=== PATIENT | male | born 1935 | race Caucasian/White ===

== ENCOUNTER → 2020-02-07 10:28 | Outpatient (BNVA) | payer MEDICARE, OTHER, SELFPAY | PROVIDERS: Family Provider Nurse Practitioner; PCP Nurse Practitioner; Visit Provider Nurse Practitioner | DX: I10 Essential (primary) hypertension (principal); E78.2 Mixed hyperlipidemia; M10.9 Gout, unspecified | CPT/HCPCS: 80053; 80061; 81000; 84550; 85025 ==

== ENCOUNTER → 2020-03-22 10:26 | Outpatient (BNVA) | payer MEDICARE, OTHER, SELFPAY | PROVIDERS: Family Provider Nurse Practitioner; PCP Nurse Practitioner; Visit Provider Nurse Practitioner | DX: L03.116 Cellulitis of left lower limb (principal); L02.416 Cutaneous abscess of left lower limb; I10 Essential (primary) hypertension | CPT/HCPCS: 85025 ==

== ENCOUNTER → 2020-08-28 10:11 | Outpatient (BNVA) | payer MEDICARE, OTHER, SELFPAY | PROVIDERS: Family Provider Nurse Practitioner; PCP Nurse Practitioner; Visit Provider Nurse Practitioner | DX: I10 Essential (primary) hypertension (principal); M10.9 Gout, unspecified; R39.11 Hesitancy of micturition; E78.2 Mixed hyperlipidemia; Z79.899 Other long term (current) drug therapy | CPT/HCPCS: 80053; 80061; 84550 ==

== ENCOUNTER → 2021-03-22 10:18 | Outpatient (BNVA) | payer MEDICARE, OTHER, SELFPAY | PROVIDERS: Family Provider Nurse Practitioner; PCP Nurse Practitioner; Visit Provider Nurse Practitioner | DX: K59.01 Slow transit constipation (principal); M10.9 Gout, unspecified; I10 Essential (primary) hypertension | CPT/HCPCS: 74018; 80053; 80061; 84443; 84550; 85025 ==

== ENCOUNTER → 2021-07-12 10:09 | Outpatient (BNVA) | payer MEDICARE, OTHER, SELFPAY | PROVIDERS: Family Provider Nurse Practitioner; PCP Nurse Practitioner; Visit Provider Nurse Practitioner | DX: I10 Essential (primary) hypertension (principal); M10.9 Gout, unspecified | CPT/HCPCS: 80053; 82607; 84443 ==

== ENCOUNTER → 2021-09-30 14:40 | Outpatient (BNVA) | payer MEDICARE, OTHER, SELFPAY | PROVIDERS: Family Provider Nurse Practitioner; PCP Nurse Practitioner; Visit Provider Nurse Practitioner | DX: I10 Essential (primary) hypertension (principal); K59.01 Slow transit constipation | CPT/HCPCS: 74018; 80053; 81000; 84443; 85025; 93005 ==

== ENCOUNTER → 2021-11-19 11:00 | Outpatient (BNVA) | payer MEDICARE, OTHER, SELFPAY | PROVIDERS: Family Provider Nurse Practitioner; PCP Nurse Practitioner; Visit Provider Internal Medicine Cardiovascular Disease | DX: N18.9 Chronic kidney disease, unspecified (principal); I49.8 Other specified cardiac arrhythmias; E78.5 Hyperlipidemia, unspecified; Z79.01 Long term (current) use of anticoagulants; R06.02 Shortness of breath | CPT/HCPCS: 80048; 80061; 84443; 85025 ==

== ENCOUNTER 2022-01-14 13:33 | Outpatient (CLI) | payer MEDICARE, OTHER, SELFPAY ==
--- NOTE | 2022-01-14 14:15 | USCV_ITS ---
Oswaldo Baron Age: 86 Gender: M : 1935 Exam Date: 01/14/2022 14:09 Ordering Phys: Lanre Little MD ([email or web address]) Technologist: DONNIE Exam Location: [facility] Indication: DYSPNEA Risk Factors: Previous Vascular Surgery: Right Brachial BP: / Left Brachial BP: / Right Left Velocity (cm/s) Spectral Plaque Velocity (cm/s) Spectral Plaque Syst/Diast Broadening Syst/Diast Broadening 53.60/ 7.80 Prox CCA 57.30 / 7.10 69.90/ 14.00 Mid CCA 48.40 / 9.10 64.50/ 10.90 Distal CCA 76.90 / 11.70 28.90/ 8.50 Prox ICA 25.00 / 9.90 57.10/ 13.90 Mid ICA 45.90 / 11.70 65.70/ 17.10 Distal ICA 35.20 / 7.70 59.00 ECA 59.80 0.94 ICA/CCA 0.60 Antegrade Vertebral Antegrade 42.70/ 11.80 cm/s 35.50/ 10.90 cm/s Tri Subclavian Tri 93.20 90.50 FINDINGS Mild to moderate heterogeneous plaques of the right bifurcation and proximal internal carotid artery Intimal thickening and scattered plaques in the common carotid artery on the right side Minimal plaques in the left internal carotid and common carotid artery. Antegrade flow in the vertebral arteries bilaterally Normal Doppler flow velocities in the subclavian arteries bilaterally CONCLUSIONS Mild to moderate heterogeneous plaques of the right bifurcation and proximal internal carotid artery, suggesting less than 50% stenosis Intimal thickening and scattered plaques in the common carotid and internal carotid artery on the left side. Dr Lanre Little MD [facility] (Electronically Signed) Final Date: 15 January 2022 18:29 S
--- NOTE | 2022-01-14 15:00 | USCV_ITS ---
Oswaldo Baron Age: 86 Gender: M : 1935 Exam Date: 01/14/2022 14:23 Ordering Phys: Lanre Little MD ([email or web address]) Technologist: DONNIE [place] [facility] [place]ication: DYSPNEA BP: 120 / 80 HR: 48 Rhythm: Sinus Technical Quality: Adequate MEASUREMENTS (Male / Female) Normal Values 2D ECHO LVOT Diameter 2.0 cm LV Ejection Fraction MOD 2C 67.8 % LV Ejection Fraction 2C AL 68.5 % LA Diameter 3.4 cm LA Width 3.4 cm LA Height 5.4 cm RA Width 4.8 cm RA Height 4.9 cm Aorta at Sinotubular Diameter 2.7 cm M-MODE Aortic Annulus Diameter 3.1 cm LA Ao Ratio MM 1.3 MV E Point Septal Separation 0.6 cm DOPPLER AV Peak Velocity 155.3 cm/s LVOT Peak Velocity 77.0 cm/s AV Area Cont Eq vti 1.5 cm squared AV Area Cont Eq pk 1.6 cm squared MV Peak Velocity 111.0 cm/s MV Area PHT 3.6 cm squared Mitral E to A Ratio 0.9 MV E' Velocity 35.5 cm/s Mitral E to MV E' Ratio 5.8 Mitral E to LV E' Lateral Ratio 5.6 Mitral E to LV E' Septal Ratio 6.2 TR Peak Velocity 238.8 cm/s TR Peak Gradient 22.8 mmHg TR Mean Velocity 206.7 cm/s TR Mean Gradient 19.1 mmHg TR Velocity Time Integral 96.5 cm TV Peak E Velocity 55.0 cm/s Right Atrial Pressure 3.0 mmHg Pulmonary Artery Systolic Pressu 25.8 mmHg PV Peak Velocity 95.0 cm/s RV Acceleration Time 0.0 s RV Ejection Time 0.4 s RV AcT/ET 0.1 FINDINGS Left Ventricle Normal left ventricular size and systolic function, EF 66 %. Mild left ventricular hypertrophy. No regional wall motion abnormalities. Right Ventricle The right ventricle is normal in size and function. Right Atrium Mildly increased right atrial size. Left Atrium Mildly increased left atrial size. Mitral Valve Trace mitral valve regurgitation. Aortic Valve Thickened aortic valve. Mild aortic valve regurgitation. Tricuspid Valve Trace to mild tricuspid valve regurgitation. Estimated pulmonary artery peak systolic pressure of 26 mm of Hg Pulmonic Valve Pulmonic valve not well visualized. Pericardium Normal pericardium without effusion. Aorta Normal ascending aorta dimension. CONCLUSIONS Normal left ventricular size and systolic function, EF 66 %. Mild left ventricular hypertrophy. No regional wall motion abnormalities. Mild biatrial enlargement. Trace to mild tricuspid valve regurgitation. Estimated pulmonary artery peak systolic pressure of 26 mm of Hg Thickened aortic valve. Mild aortic valve regurgitation. Trace mitral valve regurgitation. There is no pericardial effusion. There are no intracardiac masses. No previous study is available for comparison. Dr Lanre Little MD [facility] (Electronically Signed) Final Date: 14 January 2022 19:40 S
== END 2022-01-14 13:34 | disposition home or self-care (01) ==
PROVIDERS: Family Provider Nurse Practitioner; PCP Nurse Practitioner; Visit Provider Internal Medicine Cardiovascular Disease
DX: I77.9 Disorder of arteries and arterioles, unspecified (principal); I49.8 Other specified cardiac arrhythmias; R06.00 Dyspnea, unspecified; I65.23 Occlusion and stenosis of bilateral carotid arteries; I08.3 Combined rheumatic disorders of mitral, aortic and tricuspid valves
CPT/HCPCS: 93306; 93880

== ENCOUNTER → 2022-01-21 09:31 | Outpatient (BNVA) | payer MEDICARE, OTHER, SELFPAY | PROVIDERS: Family Provider Nurse Practitioner; PCP Nurse Practitioner; Visit Provider Nurse Practitioner | DX: I10 Essential (primary) hypertension (principal) | CPT/HCPCS: 80053; 85025 ==

== ENCOUNTER 2022-02-04 10:06 | Outpatient (CLI) | payer MEDICARE, OTHER, SELFPAY ==
--- NOTE | 2022-02-04 12:00 | CTR_ITS ---
PROCEDURE INFORMATION: Exam: CT Abdomen And Pelvis Without Contrast Exam date and time: 02/04/2022 12:00 PM Age: 86 years old Clinical indication: Other: Full incontinence of feces; Additional info: R15.9 - full incontinence of feces TECHNIQUE: Imaging protocol: Computed tomography of the abdomen and pelvis without contrast. Radiation optimization: All CT scans at this facility use at least one of these dose optimization techniques: automated exposure control; mA and/or kV adjustment per patient size (includes targeted exams where dose is matched to clinical indication); or iterative reconstruction. COMPARISON: CT Abdomen/Pelvis o [id number] 06/08/2018 10:40 AM RADIATION DOSE METRICS: Total DLP (mGy-cm): 1122.06 FINDINGS: Liver: Normal. No mass. Gallbladder and bile ducts: Normal. No calcified stones. No ductal dilation. Pancreas: Normal. No ductal dilation. Spleen: Normal. No splenomegaly. Adrenal glands: Normal. No mass. Kidneys and ureters: 2 cm cyst noted in the anterior cortex of the lower pole of the right kidney. No hydronephrosis. Stomach and bowel: Moderate colonic stool burden. No obstruction. No mucosal thickening. Appendix: No evidence of appendicitis. Intraperitoneal space: No free air. No significant fluid collection. Vasculature: No abdominal aortic aneurysm. Lymph nodes: Unremarkable. No enlarged lymph nodes. Urinary bladder: Unremarkable as visualized. Reproductive: Unremarkable as visualized. Bones/joints: No acute fracture. Advanced multilevel degenerative disc disease of the visualized thoracolumbar spine. Minimal grade 1 anterolisthesis of L4 on L5. Soft tissues: Unremarkable. CT/CT abdomen pelvis con [id number] IMPRESSION: No acute findings. Moderate colonic stool burden. COMMENTS: Consistent with the [employer]'s Incidental Findings Committee white paper (J Am Gertrude Radiol 2018): Any incidental renal lesion less than 1 cm or classified as too small to characterize, or any incidental cystic renal lesion characterized as simple-appearing, is likely benign. No follow-up imaging is recommended for these lesions per consensus recommendations based on imaging criteria.
[2022-02-04] MEDS: iohexol 300 mg/mL 50 mL Btl PO (12:08)
== END 2022-02-04 10:07 | disposition home or self-care (01) ==
LOC: RAD 10:09
PROVIDERS: PCP Nurse Practitioner; Visit Provider Nurse Practitioner
DX: R15.9 Full incontinence of feces (principal)
CPT/HCPCS: 74176

== ENCOUNTER → 2022-02-25 10:06 | Outpatient (BNVA) | payer MEDICARE, OTHER, SELFPAY | PROVIDERS: PCP Nurse Practitioner; Visit Provider Internal Medicine Cardiovascular Disease | DX: I49.8 Other specified cardiac arrhythmias (principal); I12.9 Hypertensive chronic kidney disease with stage 1 through stage 4 chronic kidney disease, or unspecified chronic kidney disease; N18.9 Chronic kidney disease, unspecified | CPT/HCPCS: 99214 ==

== ENCOUNTER → 2023-01-13 09:57 | Outpatient (BNVA) | payer MEDICARE, OTHER, SELFPAY | PROVIDERS: PCP Nurse Practitioner; Visit Provider Nurse Practitioner | DX: I10 Essential (primary) hypertension (principal); R41.3 Other amnesia | CPT/HCPCS: 80053; 80061; 81000; 82607; 84443; 85025 ==

== ENCOUNTER 2023-02-10 10:25 | Outpatient (CLI) | payer MEDICARE, OTHER, SELFPAY ==
--- NOTE | 2023-02-10 11:00 | MR_ITS ---
WS: [id number] MRI HEAD WITHOUT CONTRAST TECHNIQUE: Sagittal T1, T2 axial, T2 axial FLAIR, axial and coronal T1 images, axial susceptibility w eighted imaging, axial diffusion weighted images, and coronal T2 images were obtained. CLINICAL INFORMATION: R41.3 - Other amnesia COMPARISON: None. FINDINGS: No evidence of restricted diffusion to suggest acute ischemia. Ventricular system and basal cisterns are patent. Advanced small vessel changes. Moderate to advanced parenchymal volume loss worse in the bilateral parietal lobes and anterior temporal lobes. Normal posterior fossa. Normal vascular flow voids at the skull base. No extra-axial fluid collection s. No evidence of mass or mass effect. Paranasal sinuses are well aerated. Mild mucosal thickening in the mastoid tips. Tiny central protrusion C3-C4 on the blocking machine operator imaging. A few scattered foci of chronic hemosiderin more prominent in the RIGHT dorsal thalamus and mid RIGHT temporal lobe. Normal optic chiasm and pituitary infundibulum. Normal cavernous sinuses and Meckel's cave. Advanced atrophy temporal lobes and hippocampal formations. MR/MR head wo con* [id number] IMPRESSION: 1. No evidence of restricted diffusion to suggest acute ischemia. 2. Advanced small vessel changes. 3. Moderate to advanced parenchymal volume loss worse involving the bilateral parietal lobes and anterior temporal lobes can be seen with Alzheimer's dementi a. 4. A few scattered foci of hemosiderin more prominent in the RIGHT dorsal thal amus and mid RIGHT temporal lobe. 5. Mild mucosal thickening in the mastoid air cells. Paranasal sinuses are wel l aerated. 6. Tiny disc osteophyte protrusion C3-C4 in the upper cervical spine.
== END 2023-02-10 10:26 | disposition home or self-care (01) ==
LOC: RAD 10:29
PROVIDERS: PCP Nurse Practitioner; Visit Provider Nurse Practitioner
DX: R41.3 Other amnesia (principal)
CPT/HCPCS: 70551

== ENCOUNTER → 2023-02-24 09:43 | Outpatient (BNVA) | payer MEDICARE, OTHER, SELFPAY | PROVIDERS: PCP Nurse Practitioner; Visit Provider Internal Medicine Cardiovascular Disease | DX: I49.3 Ventricular premature depolarization (principal); G30.9 Alzheimer's disease, unspecified; F02.80 Dementia in other diseases classified elsewhere, unspecified severity, without behavioral disturbance, psychotic disturbance, mood disturbance, and anxiety; E78.2 Mixed hyperlipidemia; I10 Essential (primary) hypertension; I77.9 Disorder of arteries and arterioles, unspecified | CPT/HCPCS: 99214 ==

== ENCOUNTER → 2023-03-31 08:16 | Outpatient (BNVA) | payer MEDICARE, OTHER, SELFPAY | PROVIDERS: PCP Nurse Practitioner; Visit Provider Nurse Practitioner | DX: E53.8 Deficiency of other specified B group vitamins (principal); I10 Essential (primary) hypertension | CPT/HCPCS: 80053; 80061; 82607; 85025 ==

== ENCOUNTER → 2023-06-30 09:24 | Outpatient (BNVA) | payer MEDICARE, OTHER, SELFPAY | PROVIDERS: PCP Nurse Practitioner; Visit Provider Nurse Practitioner | DX: M10.9 Gout, unspecified (principal); F02.80 Dementia in other diseases classified elsewhere, unspecified severity, without behavioral disturbance, psychotic disturbance, mood disturbance, and anxiety; G30.9 Alzheimer's disease, unspecified; I10 Essential (primary) hypertension; I49.3 Ventricular premature depolarization | CPT/HCPCS: 80053; 82607; 84550 ==

== ENCOUNTER → 2023-09-16 12:40 | Outpatient (BNVA) | payer MEDICARE, OTHER, SELFPAY | PROVIDERS: PCP Nurse Practitioner; Visit Provider Nurse Practitioner Family | DX: I10 Essential (primary) hypertension (principal); I77.9 Disorder of arteries and arterioles, unspecified; I49.3 Ventricular premature depolarization | CPT/HCPCS: 99214 ==

== ENCOUNTER → 2023-12-15 10:44 | Outpatient (BNVA) | payer MEDICARE, OTHER, SELFPAY | PROVIDERS: PCP Nurse Practitioner; Visit Provider Nurse Practitioner | DX: I10 Essential (primary) hypertension (principal); E53.8 Deficiency of other specified B group vitamins; K59.01 Slow transit constipation; M10.9 Gout, unspecified; G30.9 Alzheimer's disease, unspecified; F02.80 Dementia in other diseases classified elsewhere, unspecified severity, without behavioral disturbance, psychotic disturbance, mood disturbance, and anxiety; M51.37 Other intervertebral disc degeneration, lumbosacral region; I49.3 Ventricular premature depolarization | CPT/HCPCS: 74018; 80053; 80061; 81000; 82607; 84443; 85025 ==

== ENCOUNTER → 2024-03-08 11:38 | Outpatient (BNVA) | payer MEDICARE, OTHER, SELFPAY | PROVIDERS: PCP Nurse Practitioner; Visit Provider Nurse Practitioner | DX: I10 Essential (primary) hypertension (principal); M10.9 Gout, unspecified; M51.37 Other intervertebral disc degeneration, lumbosacral region; G30.9 Alzheimer's disease, unspecified; F02.80 Dementia in other diseases classified elsewhere, unspecified severity, without behavioral disturbance, psychotic disturbance, mood disturbance, and anxiety; I49.3 Ventricular premature depolarization; G30.1 Alzheimer's disease with late onset; F02.B18 Dementia in other diseases classified elsewhere, moderate, with other behavioral disturbance; Z79.899 Other long term (current) drug therapy | CPT/HCPCS: 80053; 80061 ==

== ENCOUNTER → 2024-10-04 10:47 | Outpatient (BNVA) | payer MEDICARE, OTHER, SELFPAY | PROVIDERS: PCP Nurse Practitioner; Visit Provider Nurse Practitioner | DX: M10.9 Gout, unspecified (principal); G30.9 Alzheimer's disease, unspecified; G30.1 Alzheimer's disease with late onset; F02.B18 Dementia in other diseases classified elsewhere, moderate, with other behavioral disturbance; I10 Essential (primary) hypertension; I49.3 Ventricular premature depolarization; E78.2 Mixed hyperlipidemia; E55.9 Vitamin D deficiency, unspecified; Z23 Encounter for immunization; R23.8 Other skin changes; Z79.899 Other long term (current) drug therapy | CPT/HCPCS: 80053; 80061; 82306; 84443 ==

== ENCOUNTER 2024-12-06 10:54 | Observation (INO) | payer MEDICARE, OTHER, SELFPAY ==
[2024-12-06] VITALS (18 sets, daily range): BP systolic 122–167; BP diastolic 78–108; PULSE 65–117; RESP 12–25; TEMP 36.4–36.9; O2SAT 91–97; BMI 25.7
--- NOTE | 2024-12-06 11:03 | ECG_ITS ---
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 Measurements Intervals [place] Rate: 68 P: 0 FL: 0 QRS: -15 QRSD: 95 T: 0 QT: 426 QTc: 456 Interpretive Statements ATRIAL FIBRILLATION SEPTAL MYOCARDIAL INFARCTION , PROBABLY OLD [40+ ms Q WAVE IN V1/V2] No previous ECG available for comparison Electronically Signed On 12-06-2024 23:50:12 SPECIAL POLICE OFFICER by Lanre Little M.D. [email or web address]
--- NOTE | 2024-12-06 11:06 | XRR_ITS ---
PROCEDURE INFORMATION: Exam: XR Chest Exam date and time: 12/06/2024 11:09 AM Age: 89 years old Clinical indication: Other: Weakness TECHNIQUE: Imaging protocol: Radiologic exam of the chest. Views: 1 view. COMPARISON: CT chest abdpel w/*[id number] 02/23/2018 9:37 AM FINDINGS: Lungs: There is minimal linear atelectasis or scarring at the lung bases. No consolidated infiltrates are appreciated. Extrapleural line involving the right upper lung field likely represents a skin fold. There do appear to be lung markings peripheral to this line. No definite pleural effusion is noted. Pleural spaces: See Lungs finding. Heart/Mediastinum: The heart is enlarged. There is calcified plaque involving the aorta. Bones/joints: Unremarkable. XR/XR chest 1V portable [id number] IMPRESSION: 1. Cardiomegaly. Next 2. Minimal atelectasis or scarring at the lung bases.
--- NOTE | 2024-12-06 11:11 | CT_ITS ---
WS: [id number] CT CERVICAL TRAUMA TECHNIQUE: Noncontrast CT of the cervical spine with coronal and sagittal reformatted images. CLINICAL INFORMATION: fall COMPARISON: None. DLP: 200.[address] scans at [facility] use at least one of these dose optimization techniques: automated e xposure control; mA and/or kV adjustment per patient size (includes targeted exams where dose is matc hed to clinical indication); or iterative reconstruction. FINDINGS: Exaggeration of the normal cervical lordosis. Pannus formation at the C1-2 articulation. Moderate spo ndylitic changes. Disc osteophyte complexes C2-C3, C3-C4, C4-C5. Slight retrolisthesis C5 on C6. Disc narrowing worse at C5-C6 and C6-C7. Dens is normal in appearance. Normal occipital condyles. Congenital incomplete dorsal C1 ring. No tommie dence of acute fracture or dislocation. Normal prevertebral soft tissues. Surgical clips LEFT neck. Mastoids air cells are well aerated. Inspissated secretions in the sphenoid sinus. CT/CT cervical spin wo con* [id number] IMPRESSION: No evidence of acute fracture or dislocation.
--- NOTE | 2024-12-06 11:12 | ED_ITS ---
HPI - Weakness 2 General: Chief complaint: Weakness Stated complaint: Fall, AMS Time Seen by Provider: 12/06/24 10:55 Source: patient and EMS Mode of arrival: EMS Limitations: altered mental status History of Present Illness: 89-year-old male who is here today from home with frequent falls and increasing weakness per EMS patient had a fall this morning was unable to get up he has been having a hard time walking he does have dementia he is confused here he is able to tell me his name but not able answer many questions and is a poor historian Associated symptoms: Denies chest pain, chills, fever(s), headache(s), nausea or vomiting Review of Systems 2 Const: Reports: malaise; Denies: fever(s), chills, body aches or change in appetite Eyes: Denies: blurry vision or eye discomfort ENMT: Denies: throat pain or dental pain Card: Denies: chest pain Resp: Denies: dyspnea GI: Denies: abdominal pain, nausea, vomiting or diarrhea Musc: Denies: neck pain or back pain Skin/Breast: Denies: rash Neuro: Reports: weakness in extremities; Denies: headache(s) PFSH ED 2 PFSH: Medical History PVC (premature ventricular contraction) History of nonmelanoma skin cancer Mixed hyperlipidemia Statin intolerance Controlled gout Essential hypertension Slow transit constipation Surgical History History of endarterectomy Left History of cataract extraction Bilateral Family History Brother Hypertension Diabetes Hyperlipidemia CAD (coronary artery disease) unknown onset Mother Diabetes Stroke CAD (coronary artery disease) PA in her 70's Denies family history of Clotting disorder Dementia Chronic kidney disease (CKD) Suicide Anesthesia complication Bleeding disorder Lung disease Cancer Social History Smoking and tobacco/nicotine status: never used tobacco/nicotine Second hand smoke exposure: No Alcohol intake: never Substance/Drug Use: never Adopted: No Caregiver/support person: No Lives independently: Yes Household members: spouse Housing: House Marital status: Number of children: 2 service: Yes status: Retired branch: [employer] Current occupational status: retired Do you think of yourself as: Straight/Heterosexual Current gender identity: Male Physical Exam 2 Const: COMMON NORMALS: alert; negative for patient oriented x3 ORIENTATION/CONSCIOUSNESS: Yes oriented to person; not oriented to place and not oriented to time HENMT: COMMON NORMALS: normocephalic and atraumatic HEAD & SCALP: n ormocephalic and atraumatic Eye: COMMON NORMALS: Equal, round and reactive pupils present and EOMs intact bilaterally PUPIL: Yes Equal, round and reactive pupils present Neck/C-Spine: COMMON NORMALS: full ROM and supple Chest: COMMONS NORMALS: normal inspection of the chest Resp: COMMON NORMALS: normal respiratory effort, No retractions, No use of accessory muscles and clear to auscultation bilaterally AUSCULTATION: clear to auscultation bilaterally Cardio: COMMON NORMALS: regular rate, regular rhythm and No murmurs present (Cardio) RATE: regular rate RHYTHM: regular rhythm GI: COMMON NORMALS: Normal to inspection, nondistended, normoactive bowel sounds present, Soft to palpation, non-tender and no masses PALPATION: Yes Soft to palpation Extremity: COMMON NORMALS: normal to inspection and full ROM Neuro: COMMON NORMALS: moves all extremities and no focal motor deficits; negative for patient oriented x3 SENSORIUM/ORIENTATION: Yes alert, Yes oriented to person, No oriented to place and No oriented to time Psych: COMMON NORMALS: Normal thought process present and cooperative T HOUGHT PROCESS: Normal thought process present Skin: COMMON NORMALS: no rashes or lesions noted and no wounds GENERAL SKIN EXAM: no rashes or lesions noted Course 2 Vital Signs: Vital signs: Vital Signs Temperature 97.6 F 12/06/24 11:00 Pulse Rate 73 12/06/24 11:00 Blood Pressure 146/85 12/06/24 11:00 Pulse Oximetry 96 12/06/24 11:00 Oxygen Delivery Me thod Room Air 12/06/24 11:00 MDM - Weakness Medical Decision Making Patient presents with generalized weakness he has had multiple falls as well as had a hard time ambulating here I do not feel he is stable for discharge back home at this time head CT was normal. Medical Records I reviewed the patient's medical records. Lab Data I reviewed the patient's lab results. 12/06/24 13:00 12/06/24 11:46 Radiology Impressions Chest X-Ray 12/06/24 11:06 IMPRESSION: 1. Cardiomegaly. Next 2. Minimal atelectasis or scarring at the lung bases. Cervical Spine CT 12/06/24 11:11 IMPRESSION: No evidence of acute fracture or dislocation. Hip/Pelvis X-Ray 12/06/24 11:43 IMPRESSION: No acute traumatic injury. Head CT 12/06/24 11:45 IMPRESSION: 1. No evidence of intracranial hemorrhage or mass effect. 2. Advanced small vessel changes. Moderate parenchymal volume loss similar to previous. 3. No acute intracranial findings. Laboratory Results WBC 7.73 10^3/uL (3.29-11.43) 12/06/24 13:00 Corrected WBC Cancelled 12/06/24 11:46 RBC 5.19 10^6/uL (3.85-5.65) 12/06/24 13:00 Hgb 15.40 g/dL (11.27-16.99) 12/06/24 13:00 Hct 48.7 % (37-53) 12/06/24 13:00 MCV 93.8 fl (82-101) 12/06/24 13:00 MCH 29.7 pg (27-33) 12/06/24 13:00 MCHC 31.6 g/dL (30-55) 12/06/24 13:00 RDW 14.0 % (12.1-15.1) 12/06/24 13:00 Plt Count 95 10^3/cmm (157-399) L 12/06/24 13:00 MPV 12.3 fL (7.4-10.4) H 12/06/24 13:00 Gran % Cancelled 12/06/24 11:46 Neut % (Auto) 74.2 % 12/06/24 13:00 Lymph % (Auto) 16.7 % 12/06/24 13:00 [place] % (Auto) 7.1 % 12/06/24 13:00 Eos % (Auto) 1.3 % 12/06/24 13:00 Baso % (Auto) 0.4 % 12/06/24 13:00 Neut # (Auto) 5.74 10^3/uL (1.8-7.7) 12/06/24 13:00 Lymph # (Auto) 1.3 10^3/uL (0.8-4.8) 12/06/24 13:00 [place] # (Auto) 0.6 10^3/uL (0.2-0.9) 12/06/24 13:00 Eos # (Auto) 0.1 10^3/uL (0.0-0.8) 12/06/24 13:00 Baso # (Auto) 0.0 10^3/uL (0.0-0.1) 12/06/24 13:00 Absolute Gran (auto) Cancelled 12/06/24 11:46 Nucleated RBC % (auto) 0 % 12/06/24 13:00 Nucleated RBCs # 0.0 /100WBC 12/06/24 13:00 Sodium 136 mmol/L (136-145) 12/06/24 11:46 Potassium 4.1 mmol/L (3.5-5.1) 12/06/24 11:46 Chloride 102 mmol/L (98-107) 12/06/24 11:46 Carbon Dioxide 26 mmol/L (22-29) 12/06/24 11:46 Anion Gap 12.1 (5-19) 12/06/24 11:46 BUN 18 mg/dL (8-23) 12/06/24 11:46 Creatinine 1.3 mg/dL (0.7-1.2) H 12/06/24 11:46 GFR Calculation Not Reportable 12/06/24 11:46 Glucose 102 mg/dL (65-115) 12/06/24 11:46 POC Glucose 87 mg/dL (70-110) 12/06/24 11:40 Calculated Osmolality 284 mOsm/kg (285-295) L 12/06/24 11:46 Calcium 10.0 mg/dL (8.5-10.5) 12/06/24 11:46 Magnesium 2.1 mg/dL (1.7-2.3) 12/06/24 11:46 Total Bilirubin 0.9 mg/dL (0.15-1.2) 12/06/24 11:46 AST 20 U/L (0-40) 12/06/24 11:46 ALT 15 U/L (0-41) 12/06/24 11:46 Alkaline Phosphatase 105 U/L (40-130) 12/06/24 11:46 Total Protein 6.6 g/dL (6.6-8.7) 12/06/24 11:46 Albumin 3.9 g/dL (3.5-5.2) 12/06/24 11:46 Globulin 2.7 g/dL (1.3-4.6) 12/06/24 11:46 TSH 3.99 uIU/mL (0.27-4.20) 12/06/24 11:46 Urine Color Yellow (Yellow) 12/06/24 12:02 Urine Appearance Clear (CLEAR) 12/06/24 12:02 Urine pH 5.5 (5-7) 12/06/24 12:02 Ur Specific [place] 1.017 (1.005-1.030) 12/06/24 12:02 Urine Protein Negative (Negative) 12/06/24 12:02 Urine Glucose (UA) Negative (Normal) 12/06/24 12:02 Urine Ketones Negative (Negative) 12/06/24 12:02 Urine Blood Negative (Negative) 12/06/24 12:02 Urine Nitrate Negative (Negative) 12/06/24 12:02 Urine Bilirubin Negative (Negative) 12/06/24 12:02 Urine Urobilinogen 1.0 mg/dL (Negative) 12/06/24 12:02 Ur Leukocyte Esterase Negative (Negative) 12/06/24 12:02 Urine RBC 0-2 /hpf (0-2) 12/06/24 12:02 Urine WBC 0-5 /hpf (0-5) 12/06/24 12:02 Ur Squamous Epith Cells 0-5 /hpf (0-5) 12/06/24 12:02 Amorphous Sediment Not Reportable 12/06/24 12:02 Urine Bacteria None seen /hpf (NONE) 12/06/24 12:02 Hyaline Casts 2.05 /lpf 12/06/24 12:02 All radiology interpretation(s) finalized by discharge EKG Data EKG 1: I personally reviewed and interpreted this EKG as follows: EKG interpretation date: 12/06/24 EKG interpretation time: 11:03 Interpretation: afib hr [address] elevation qrs 95 qtc 444 Discharge Plan Discharge Patient Disposition: Admitted As Inpatient Clinical Impression: Weakness Condition: Stable Prescriptions: No Action amlodipine 10 mg tablet 10 mg PO DAILY Qty: 90 1RF magnesium L-lactate [Magtab] 84 mg tablet extended release 84 mg PO DAILY Qty: 90 1RF diclofenac sodium [Voltaren Arthritis Pain] 1 % gel 2 g topical QID PRN (Reason: joint pain) Qty: 100 2RF Rx Instructions: apply to single elbow, wrist or hand; for hand includes palm/fingers/back of hand allopurinol 300 mg tablet 300 mg PO DAILY Qty: 90 1RF aripiprazole [Abilify] 5 mg tablet 5 mg PO DAILY Qty: 90 1RF duloxetine [Cymbalta] 20 mg capsule,delayed release(DR/EC) 20 mg PO .in AM Qty: 90 1RF Rx Instructions: for feet hydralazine 25 mg tablet 25 mg PO TID Qty: 270 1RF losartan 100 mg tablet 100 mg PO DAILY Qty: 90 1RF metoprolol tartrate 25 mg tablet 25 mg PO BID Qty: 180 1RF mupirocin 2 % ointment 1 applic topical BID Qty: 15 0RF trazodone 50 mg tablet 50 mg PO .at bedtime for sleep Qty: 30 2RF Referrals: Cindy Kaye, PICK UP OPERATOR-C [Primary Care Provider] - Coding Level of Care Code ED Advertising Designer for g Fwd Related Data Previous Rx's Medication Instructions Recorded amlodipine 10 mg tablet 10 mg PO DAILY #90 tabs 05/24/24 diclofenac sodium 1 % topical gel 2 g topical QID PRN joint pain 05/24/24 (Voltaren Arthritis Pain) #100 grams magnesium L-lactate 84 mg 84 mg PO DAILY #90 tabs 05/24/24 tablet,extended release (Magtab) allopurinol 300 mg tablet 300 mg PO DAILY #90 tabs 10/04/24 aripiprazole 5 mg tablet (Abilify) 5 mg PO DAILY #90 tabs 10/04/24 duloxetine 20 mg capsule,delayed 20 mg PO .in AM #90 caps 10/04/24 release (Cymbalta) hydralazine 25 mg tablet 25 mg PO TID #270 tabs 10/04/24 losartan 100 mg tablet 100 mg PO DAILY #90 tabs 10/04/24 metoprolol tartrate 25 mg tablet 25 mg PO BID #180 tabs 10/04/24 mupirocin 2 % topical ointment 1 applic topical BID #15 grams 10/04/24 trazodone 50 mg tablet 50 mg PO .at bedtime for sleep #30 11/08/24 tabs Allergies Allergy/AdvReac Type Severity Reaction Status Date / Time atorvastatin [From Lipitor] Allergy Unknown Verified 12/06/24 11:07
[2024-12-06 11:42] LABS: Glucose Point of Care 87 mg/dL (70-110)
--- NOTE | 2024-12-06 11:43 | XRR_ITS ---
PROCEDURE INFORMATION: Exam: XR Left Hip Exam date and time: 12/06/2024 11:44 AM Age: 89 years old Clinical indication: Injury or trauma; Fall; Blunt trauma (contusions or hematomas); Left; Hip TECHNIQUE: Imaging protocol: Radiologic exam of the left hip. Views: 2 or 3 views hip with pelvis when performed. COMPARISON: CT abdomen pelvis wo con [id number] 02/04/2022 10:46 AM FINDINGS: Bones/joints: Mild acromioclavicular and glenohumeral spurring. No fracture or dislocation. No acute osseous, joint, or soft tissue abnormality. Soft tissues: See Bones/joints finding. XR/XR hip LT 2-3V wo/w pel* [id number] IMPRESSION: No acute traumatic injury.
--- NOTE | 2024-12-06 11:45 | CT_ITS ---
WS: [id number] CT HEAD TECHNIQUE: Noncontrast CT of the head obtained from the skullbase to the vertex. CLINICAL INFORMATION: fall COMPARISON: MRI 02/10/2023 DLP: 1811.[address] scans at [facility] use at least one of these dose optimization techniques: automated e xposure control; mA and/or kV adjustment per patient size (includes targeted exams where dose is matc hed to clinical indication); or iterative reconstruction. FINDINGS: No evidence of intracranial hemorrhage or mass effect. Ventricular system and basal cisterns are ferguson nt. Advanced small vessel changes with moderate parenchymal volume loss. Vascular calcification. No e xtra-axial fluid collections. No evidence of mass or mass effect. 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 Paranasal sinuses and mastoid air cells are well aerated. Inspissated secretions in the sphenoid sinu s..Normal visualized soft tissues. CT/CT head wo con* [id number] IMPRESSION: 1. No evidence of intracranial hemorrhage or mass effect. 2. Advanced small vessel changes. Moderate parenchymal volume loss similar to previous. 3. No acute intracranial findings.
[2024-12-06 12:17] LABS: Bilirubin Urine Negative (Negative); Blood Urine Negative (Negative); Glucose Urine UA Negative (Normal); Ketones Urine Negative (Negative); Leukocyte Esterase Urine Negative (Negative); Nitrate Urine Negative (Negative); Protein Urine Negative (Negative); Specific Gravity, Urine 1.017 (1.005-1.030); Urine Appearance Clear (CLEAR); Urine Color Yellow (Yellow); pH Urine 5.5 (5-7)
[2024-12-06 12:22] LABS: Add Urine Microscopic? YES; Bacteria Urine None Seen /hpf; Hyaline Casts Urine 2.05 /lpf; RBC Urine 0-2 /hpf (0-2); Squamous Epithelial Cell Urine 0-5 /hpf (0-5); WBC Urine 0-5 /hpf (0-5)
[2024-12-06 12:24] LABS: Alanine Aminotransferase 15 U/L (0-41); Albumin Level 3.9 g/dL (3.5-5.2); Alkaline Phosphatase 105 U/L (40-130); Anion Gap 12.1 (5-19); Aspartate Amino Transferase 20 U/L (0-40); Blood Urea Nitrogen 18 mg/dL (8-23); Carbon Dioxide 26 mmol/L (22-29); Chloride 102 mmol/L (98-107); Creatinine Clr Calc Pharmacy 45.8842; Globulin 2.7 g/dL (1.3-4.6); Glucose 102 mg/dL (65-115); Magnesium 2.1 mg/dL (1.7-2.3); Osmolality Calculated 284 mOsm/kg (285-295); Potassium 4.1 mmol/L (3.5-5.1); Sodium 136 mmol/L (136-145); Thyroid Stimulating Hormone 3.99 uIU/mL (0.27-4.20); Total Bilirubin 0.9 mg/dL (0.15-1.2); Total Protein 6.6 g/dL (6.6-8.7)
[2024-12-06 12:38] LABS: Add Urine Culture? No; UA Slide Review UA Slide Review Perf
[2024-12-06 13:07] LABS: Basophils % 0.4 %; Eosinophils # 0.1 10^3/uL (0.0-0.8); Eosinophils % 1.3 %; Hematocrit 48.7 % (37-53); Lymphocytes # 1.3 10^3/uL (0.8-4.8); Lymphocytes % 16.7 %; Mean Corpuscular HGB Conc 31.6 g/dL (30-55); Mean Corpuscular Hemoglobin 29.7 pg (27-33); Mean Corpuscular Volume 93.8 fl (82-101); Mean Platelet Volume 12.3 fL (7.4-10.4); Monocytes # 0.6 10^3/uL (0.2-0.9); Monocytes % 7.1 %; Neutrophils # 5.74 10^3/uL (1.8-7.7); Neutrophils % 74.2 %; Nucleated Red Blood Cells % 0 %; Platelet Count 95 10^3/cmm (157-399); Red Blood Count 5.19 10^6/uL (3.85-5.65); White Blood Count 7.73 10^3/uL (3.29-11.43)
--- NOTE | 2024-12-06 16:02 | P.HP_ITS ---
Providers/Chief Complaint 2 Primary Care Provider: Cindy Kaye, CELIO Chief Complaint: Fall, AMS History of Present Illness Oswaldo Baron is a 89 year old male With past medical history of hypertension, gout, hyperlipidemia, PVCs who presented to the hospital today brought in by family for complaint of fall that happened this morning. He fell yesterday as well where the neighbor had to lift him up from the sofa. Patient's family states that he has been having frequent falls lately where his legs just give out and he feels weak. He does not complain of any lightheadedness prior to falling. They also report he had an episode of blood in urine this morning. Also has history of BPH however is not on any medications for it as far as they are aware. He has a really good appetite and eats. He does have a diagnosis of Alzheimer's dementia for the last 2 years. He is quite functional and able to recognize his family members and perform his ADLs. He does have some bad days and there is some owners but for the most part he is doing okay. He follows with Cindy Kaye as an outpatient. Patient's family also reports that he has pedal edema for which his primary care doctor was concerned for possible heart failure however they state that there was no workup ordered?. Patient is unable to provide any history at this time since he is confused. He is also hard of hearing. Patient is not taking any of his home medications today. Seen in ER room 7. On telemetry he does seem to have tachycardia with heart rate up to 150 160 at rest and thereafter having lower heart rates with values in 60s with some prolonged beats. No real sinus pause noted on telemetry while I was in the room. Patient has no known history of A-fib. Chest x-ray showed cardiomegaly CT cervical spine shows no acute fracture or dislocation Hip pelvis x-ray shows no acute traumatic injury ? CT head shows no evidence of intracranial hemorrhage or mass effect EKG did show A-fib heart rate [address] elevation. Urinalysis is normal Medications/Allergies Home Medications Medication Instructions Recorded Confirmed Last Taken Type amlodipine 10 mg tablet 10 mg PO DAILY #90 tabs 05/24/24 12/06/24 12/05/24 Rx diclofenac sodium 1 % topical gel 2 g topical QID PRN joint pain 05/24/24 12/06/24 12/05/24 Rx (Voltaren Arthritis Pain) #100 grams magnesium L-lactate 84 mg 84 mg PO DAILY #90 tabs 05/24/24 12/06/24 12/05/24 Rx tablet,extended release (Magtab) allopurinol 300 mg tablet 300 mg PO DAILY #90 tabs 10/04/24 12/06/24 12/05/24 Rx aripiprazole 5 mg tablet (Abilify) 5 mg PO DAILY #90 tabs 10/04/24 12/06/24 12/05/24 Rx duloxetine 20 mg capsule,delayed 20 mg PO .in AM #90 caps 10/04/24 12/06/24 12/05/24 Rx release (Cymbalta) hydralazine 25 mg tablet 25 mg PO TID #270 tabs 10/04/24 12/06/24 12/05/24 Rx losartan 100 mg tablet 100 mg PO DAILY #90 tabs 10/04/24 12/06/24 12/05/24 Rx metoprolol tartrate 25 mg tablet 25 mg PO BID #180 tabs 10/04/24 12/06/24 12/05/24 Rx mupirocin 2 % topical ointment 1 applic topical BID #15 grams 10/04/24 12/06/24 12/05/24 Rx trazodone 50 mg tablet 50 mg PO .at bedtime for sleep #30 11/08/24 12/06/24 12/05/24 Rx tabs Allergies Allergy/AdvReac Type Severity Reaction Status Date / Time atorvastatin [From Lipitor] Allergy Unknown Verified 12/06/24 11:07 PFSH Acute 2 PFSH: Medical History PVC (premature ventricular contraction) History of nonmelanoma skin cancer Mixed hyperlipidemia Statin intolerance Controlled gout Essential hypertension Slow transit constipation Surgical History History of endarterectomy Left History of cataract extraction Bilateral Family History Brother Hypertension Diabetes Hyperlipidemia CAD (coronary artery disease) unknown onset Mother Diabetes Stroke CAD (coronary artery disease) [place] in her 70's Denies family history of Clotting disorder Dementia Chronic kidney disease (CKD) Suicide Anesthesia complication Bleeding disorder Lung disease Cancer Social History Smoking and tobacco/nicotine status: never used tobacco/nicotine Second hand smoke exposure: No Alcohol intake: never Substance/Drug Use: never Adopted: No Caregiver/support person: No Lives independently: Yes Household members: spouse Housing: House Marital status: Number of children: 2 service: Yes status: Retired branch: [employer] Current occupational status: retired Do you think of yourself as: Straight/Heterosexual Current gender identity: Male Vitals/I&O/Wt Last Vital Signs Temp 97.6 F 12/06/24 11:00 Pulse 73 12/06/24 11:00 BP 146/85 12/06/24 11:00 Pulse Ox 96 12/06/24 11:00 O2 Del Method Room Air 12/06/24 11:00 Weight last 48 hrs Weight 86.183 kg Physical Exam 2 Narrative: General: Alert and oriented to self, seen sitting up in bed with family present at bedside. Very hard of hearing. HEENT: Normocephalic, atraumatic, EOMI, breathing comfortably on room air. Cardio: Irregularly irregular, normal S1-S2, no gross murmurs. Respiratory: To auscultation bilaterally no wheezes no rhonchi GI: Abdomen soft, nontender, bowel sounds + Extremities: Bilateral 2+ pedal edema present Skin: Good skin turgor, does not appear to be dehydrated at this time. Moist mucous membranes Data 12/06/24 13:00 12/06/24 11:46 A&P Assessment and plan (1) Essential hypertension: (2) PVC (premature ventricular contraction): (3) Mixed hyperlipidemia: (4) Controlled gout: (5) Alzheimer's dementia: Qualifiers: Alzheimer's disease onset: late onset Dementia severity: moderate D ementia behavioral or psychological symptom: with other behavioral disturbance Qualified Code(s): G30.1 - Alzheimer's disease with late onset; F02.B18 - Dementia in other diseases classified elsewhere, moderate, with other behavioral disturbance (6) Weakness: (7) Frequent falls: Plan #Altered mental status with underlying dementia, possible acute metabolic encephalopathy versus worsening dementia #Bilateral pedal edema, congestive heart failure? #Frequent falls #CKD #Atrial fibrillation, possibly new onset? ? Continue to monitor on telemetry. CT head is negative, chest x-ray is negative, CT C-spine, hip x-rays negative, urinalysis negative white count is normal. Does have CKD with creatinine is at patient's baseline. He may possibly having worsening dementia. I do not believe there is an underlying infection at this time. He denies any fever cough shortness of breath nausea vomiting diarrhea abdominal pain constipation as per family. ? Possibly new onset congestive heart failure?. Will place on Lasix 20 IV daily and see response ? Family did report blood in urine. Urinalysis does not show any RBCs at this time. Possible rhabdo? ? Will check CPK ? Vitals are stable ? Continue home hydralazine 25 3 times daily ? Continue losartan 100 daily ? Continue metoprolol 25 twice daily ? Continue Abilify 5 daily ? Hold off on amlodipine at this time. Will monitor patient with above medications at this time ? Check PT OT ? Check bladder scan. If patient retaining will place Humphries catheter ? Will observe patient in the hospital overnight. Will check an echocardiogram. If warranted may consult cardiology. Patient has worn a Holter monitor in the past. Does have a history of PVCs. Had a goals of care discussion with the family and they would like to elect for DNR/DNI status. Attestations 2 Medical Necessity Statement*: Observation admission. Expect discharge in less than 48 hours. 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
--- NOTE | 2024-12-06 16:17 | USCV_ITS ---
Oswaldo Baron Age: 89 Gender: M : 1935 Exam Date: 12/06/2024 16:55 Ordering Phys: Mira Lorenz MD Technologist: Tee Valencia Exam Location[place] [facility] [place]ication: Afib, EF? History of HTN, gout, HL, PVCs, s/p GLF BP: 153 / 99 HR: 76 Rhythm: Atrial fibrillation Technical Quality: Adequate MEASUREMENTS (Male / Female) Normal Values 2D ECHO LV Diastolic Diameter PLAX 3.5 cm 4.2 - 5.9 / 3.9 - 5.3 cm IVS Diastolic Thickness 2.0 cm 0.6 - 1.0 / 0.6 - 0.9 cm IVS Systolic Thickness 2.7 cm LVPW Diastolic Thickness 1.5 cm 0.6 - 1.0 / 0.6 - 0.9 cm LVPW Systolic Thickness 1.9 cm LVOT Diameter 2.0 cm LV Ejection Fraction 2D Teich 59.5 % LV Ejection Fraction MOD 4C 47.8 % LV Ejection Fraction MOD 2C 78.1 % LV Ejection Fraction 2C AL 40.2 % LA Diameter 4.4 cm LA Sys Volume AL 80.9 cm cubed LA Sys Volume Index AL 38.5 cm cubed/m squared Aorta at Sinotubular Diameter 2.5 cm IVC Diameter 1.5 cm M-MODE LA Ao Ratio MM 1.4 AV Cusp Separation MM 2.5 cm DOPPLER AV Peak Velocity 134.0 cm/s LVOT Peak Velocity 73.0 cm/s AV Area Cont Eq vti 1.9 cm squared AV Area Cont Eq pk 1.8 cm squared MV Peak Velocity 122.0 cm/s MV Area PHT 4.8 cm squared Mitral E to A Ratio 0.0 TV Peak Velocity 269.7 cm/s TR Peak Velocity 290.0 cm/s TR Peak Gradient 33.6 mmHg TV Peak E Velocity 59.0 cm/s PV Peak Velocity 83.0 cm/s FINDINGS Left Ventricle Normal left ventricular size, systolic function and wall thickness, with no regional wall motion abnormalities. Left ventricular ejection fraction is estimated at 60 %. Grade I/IV diastolic dysfunction (abnormal relaxation filling pattern), normal to mildly elevated filling pressures. Right Ventricle The right ventricle is normal in size and function. Right Atrium The right atrium is normal in size. Left Atrium Moderately increased left atrial size. Mitral Valve Moderately thickened mitral valve. Mild mitral annular calcification. No mitral valve stenosis. Mild-moderate mitral valve regurgitation. Aortic Valve Thickened aortic valve. Mild aortic valve stenosis, mean gradient 3.6 mmHg, KARIE 1.9 cm squared. Trace aortic valve regurgitation. Tricuspid Valve Mild tricuspid valve regurgitation. Pulmonic Valve Structurally normal pulmonic valve without significant stenosis. There is no pulmonic regurgitation. Pericardium Normal pericardium without effusion. Aorta Normal ascending aorta dimension. IVC The inferior vena cava appears normal. CONCLUSIONS Normal left ventricular size, systolic function and wall thickness, with no regional wall motion abnormalities. Left ventricular ejection fraction is estimated at 60 %. Grade I/IV diastolic dysfunction (abnormal relaxation filling pattern), normal to mildly elevated filling pressures. Moderately increased left atrial size. Thickened aortic valve. Mild aortic valve stenosis, mean gradient 3.6 mmHg, KARIE 1.9 cm squared. Trace aortic valve regurgitation. Moderately thickened mitral valve. Mild mitral annular calcification. No mitral valve stenosis. Mild-moderate mitral valve regurgitation. There is no pericardial effusion. Right atrial pressure is around 5 mm of mercury. Susan Rojas MD (Electronically Signed) Final Date: 07 December 2024 11:43 S
--- NOTE | 2024-12-06 17:16 | ECG_ITS ---
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 Measurements Intervals [place] Rate: 61 P: 0 SC: 0 QRS: -14 QRSD: 94 T: -14 QT: 415 QTc: 421 Interpretive Statements ATRIAL FIBRILLATION SEPTAL MYOCARDIAL INFARCTION , PROBABLY OLD [40+ ms Q WAVE IN V1/V2] Compared to ECG 12/06/2024 11:03:47 No significant changes Electronically Signed On 12-06-2024 23:50:14 COMMERCIAL APPRAISER by Lanre Little M.D. [email or web address]
[2024-12-06 17:20] LABS: NT Pro B Type Natriuretic Pept 2305 pg/mL (0-450); Procalcitonin 0.05 ng/mL (0-0.5); Thyroid Stimulating Hormone 4.08 uIU/mL (0.27-4.20)
[2024-12-06 17:28] LABS: Troponin(5th) Baseline 30 ng/L (0-15)
[2024-12-06] MEDS: heparin 5,000 unit/mL INJ 1 mL 5000 UNIT SUBCUT (18:01)
--- NOTE | 2024-12-06 18:50 | ECG_ITS ---
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
[2024-12-06] MEDS: FUROsemide 10 mg/mL SDV 4mL 40 MG IVP (19:01)
[2024-12-06 19:32] LABS: Troponin 5 2HR 30.46 ng/L (0-15); Troponin 5 2HR Delta 0.46 ABS# (0-10)
[2024-12-06] MEDS: trazodone 50 mg Tablet PO (20:57)
[2024-12-06] MEDS: hyDRALAzine 25 mg Tablet PO (20:57)
[2024-12-06] MEDS: metoprolol tartrate 25 mg Tablet PO (20:57)
--- NOTE | 2024-12-06 23:15 | PC.RESP ---
pts family asked for pt not to be awakened for ekg, rn aware
[2024-12-06 23:16] LABS: Troponin 5 6HR 32.32 ng/L (0-15); Troponin 5 6HR Delta 2.32 ng/L (0-12)
[2024-12-07] VITALS (17 sets, daily range): BP systolic 102–122; BP diastolic 61–85; PULSE 64–91; RESP 14–77; TEMP 36.6–37; O2SAT 91–95
[2024-12-07 05:15] LABS: Basophils % 0.5 %; Eosinophils # 0.2 10^3/uL (0.0-0.8); Eosinophils % 1.8 %; Hematocrit 44.7 % (37-53); Lymphocytes # 1.2 10^3/uL (0.8-4.8); Mean Corpuscular HGB Conc 32.2 g/dL (30-55); Mean Corpuscular Hemoglobin 29.3 pg (27-33); Mean Corpuscular Volume 90.9 fl (82-101); Monocytes # 0.8 10^3/uL (0.2-0.9); Neutrophils % 74.5 %; Nucleated Red Blood Cells % 0 %; Platelet Count 140 10^3/cmm (157-399); Red Blood Count 4.92 10^6/uL (3.85-5.65); Red Cell Distribution Width 13.9 % (12.1-15.1); White Blood Count 8.86 10^3/uL (3.29-11.43)
[2024-12-07 05:43] LABS: Blood Urea Nitrogen 16 mg/dL (8-23); Calcium 9.8 mg/dL (8.5-10.5); Carbon Dioxide 29 mmol/L (22-29); Chloride 102 mmol/L (98-107); Creatinine Clr Calc Pharmacy 46.6751; Glucose 103 mg/dL (65-115); Osmolality Calculated 293 mOsm/kg (285-295); Sodium 141 mmol/L (136-145)
[2024-12-07] MEDS: heparin 5,000 unit/mL INJ 1 mL 5000 UNIT SUBCUT ×2 (05:58→18:12)
--- NOTE | 2024-12-07 09:18 | PC.CHAP ---
Pastoral Care Encounter/Spiritual Assessment Type of Contact [] Declined wet plant operator visit [] Patient/Family/Request visit [] Outpatient visit [] Follow-up visit [] Physician referral [] Code/Alert [x] Routine visit [] Staff referral [] Actively dying [] Patient sleeping [x] Family support [] [] Out of room [] Palliative care [] [] Receiving care in room [] Pre-surgical visit [] Trauma [] Long length of stay [] ICU visit [x Relational/Emotional Strength [] Patient feels connected with others/family/visitors/staff [] Distress [] Loneliness/isolation [] Abandonment Spirituality of Patient [] Person of Nakia [] Attends Latter-Day of their Nakia [] Believes in Prayer [] Reads Bible or Bahai materials [] There are Spiritual issues to be addressed Hide Cleaner Interventions [x] Prayer [x] Active listening [x] Non-anxious presence [x] Spiritual/emotional support [] Crisis/trauma care [] Spiritual counseling [] Bereavement support [] Provided bereavement packet [] Provided Bible/devotional materials [] Provided toy/stuffed animal, coloring book to patient or family member [] Provided Communion [] Anointing/[place] [] Salvation [x] Completed spiritual assessment [x] Other: Patient sleeping. Visit with family. Impact on Illness or Injury [] Angry [] Fearful [] Anxious [] Often cries [] Exhaustion [] Unable to work [] Unable to attend adventism [] Unable to walk/stand [] Unable to read [] Unable to drive [] Unable to eat/drink [] Unable to sleep [] Unable to be with family [] Patient intubated [] Other: Summary Time spent with patient % min
[2024-12-07] MEDS: magnesium lactate 84 mg Tablet PO (09:29)
[2024-12-07] MEDS: ARIPiprazole 10 mg Tablet 5 MG PO (09:29)
[2024-12-07] MEDS: metoprolol tartrate 25 mg Tablet PO (09:30)
[2024-12-07] MEDS: hyDRALAzine 25 mg Tablet PO (09:30)
[2024-12-07] MEDS: duloxetine 20 mg Capsule PO (09:30)
[2024-12-07] MEDS: losartan 50 mg Tablet 100 MG PO (09:30)
--- NOTE | 2024-12-07 11:34 | P.PN_ITS ---
Subjective 2 Subjective: Seen this morning at the bedside. Patient is quite sleepy however does wake up to state his name and follows commands. Family states he has been sleepy where he would not wake up to eat breakfast. On telemetry overnight there was evidence of atrial flutter A-fib and conversion to sinus. There is also a lot of artifact on telemetry. Echo this morning shows mild to moderate mitral regurgitation with normal EF. Patient was unable to work with physical therapy this morning secondary to somnolence. He did get his regular nighttime dose of trazodone. Family states that they were not seen in the ER by an ER physician prior to being admitted by hospitalist and were quite upset about it. At time of admission they had voiced the same concern and requested to transfer. I did offer them transfer to another facility in the ER when I saw patient however they were okay staying here at that time for further workup. This morning family had concerns regarding inadequate workup at [facility] and requested the physical therapist to transfer patient to [place]. I went and saw family and patient at bedside and discussed with them then we will be doing an MRI due to underlying atrial fibrillation and suspicion of stroke and discussed results of echo and telemetry. They are on board with the plan to do the MRI. Vitals/I&O/Wt Last Vital Signs Temp 97.8 F 12/07/24 07:38 Pulse 83 12/07/24 08:04 Resp 16 12/07/24 08:04 BP 102/65 12/07/24 09:30 Pulse Ox 94 12/07/24 08:04 O2 Del Method Room Air 12/07/24 08:04 12/06/24 12/07/24 12/07/24 22:59 06:59 14:59 Intake Total 0 / 0 Output Total 1200 / 1200 1725 / 2925 Balance -1200 / -1200 -1725 / -2925 Weight last 48 hrs Weight 89.675 kg Weight 89.675 kg Weight 86.183 kg Physical Exam 2 Narrative: General: Alert and oriented to self, sitting up in bed sleeping however does wake up to command and answers questions. Appears to be sleepy than yesterday. HEENT: Normocephalic, atraumatic, EOMI, breathing comfortably on room air. Cardio: Irregularly irregular, normal S1-S2, no gross murmurs. Respiratory: Clear to auscultation bilaterally no wheezes no rhonchi GI: Abdomen soft, nontender, bowel sounds + Extremities: Bilateral 2+ pedal edema present Skin: Good skin turgor, does not appear to be dehydrated at this time. Moist mucous membranes. Neuro: Able to move all 4 extremities follow commands answer questions. Urinary Catheter Management: Humphries: Cath Placed During This Visit: yes Reason for Continuing Indwelling Catheter: Accurate Measurement of Urinary Output in Critically Ill Patients Urinary Catheter Date of Insertion: 12/06/24 Urinary Catheter Time of Insertion: 17:30 Data 12/07/24 04:40 12/07/24 04:40 A&P Assessment and plan (1) Essential hypertension: (2) PVC (premature ventricular contraction): (3) Mixed hyperlipidemia: (4) Controlled gout: (5) Alzheimer's dementia: Qualifiers: Alzheimer's disease onset: late onset Dementia severity: moderate D ementia behavioral or psychological symptom: with other behavioral disturbance Qualified Code(s): G30.1 - Alzheimer's disease with late onset; F02.B18 - Dementia in other diseases classified elsewhere, moderate, with other behavioral disturbance (6) Weakness: (7) Frequent falls: Plan #Altered mental status with underlying dementia, possible acute metabolic encephalopathy versus worsening dementia #Bilateral pedal edema, congestive heart failure? #Frequent falls #CKD #Atrial fibrillation, possibly new onset? ? Continue to monitor on telemetry. CT head is negative, chest x-ray is negative, CT C-spine, hip x-rays negative, urinalysis negative white count is normal. Does have CKD with creatinine is at patient's baseline. He may possibly having worsening dementia. I do not believe there is an underlying infection at this time. He denies any fever cough shortness of breath nausea vomiting diarrhea abdominal pain constipation as per family. ? Possibly new onset congestive heart failure?. Will place on Lasix 20 IV daily and see response ? Family did report blood in urine. Urinalysis does not show any RBCs at this time. Possible rhabdo? ? Will check CPK ? Vitals are stable ? Continue home hydralazine 25 3 times daily ? Continue losartan 100 daily ? Continue metoprolol 25 twice daily ? Continue Abilify 5 daily ? Hold off on amlodipine at this time. Will monitor patient with above medications at this time ? Check PT OT ? Check bladder scan. If patient retaining will place Humphries catheter ? Will observe patient in the hospital overnight. Will check an echocardiogram. If warranted may consult cardiology. Patient has worn a Holter monitor in the past. Does have a history of PVCs. Had a goals of care discussion with the family and they would like to elect for DNR/DNI status. 12/07/2024 -Patient does have a new diagnosis of atrial fibrillation. On telemetry overnight there is evidence of atrial fibrillation/flutter and conversion to sinus thereafter. I have discussed with the on-call corporate securities research analyst and reviewed telemetry strips and EKG. We will increase metoprolol to metoprolol to tartrate 37.5 twice daily at this time. ? Due to new diagnosis of A-fib and suspicion of stroke due to patient's somnolence and change in mental status acutely over the last few days with increased frequent falls will order MRI head and MRA head and neck to rule out stroke. Discussed this with the family in detail. Secondary to patient's frequent falls patient would not be candidate for anticoagulation as there is a risk of bleed. Family agrees to that at this time. ? Will place on aspirin 325 daily. ? Continue Abilify 5 daily. I will stop trazodone at this time ? Continue hydralazine 25 3 times daily ? Continue to hold amlodipine ? Humphries catheter placed yesterday. ? Echo shows moderate to moderate mitral regurgitation. Will continue diuresis with Lasix. Continue Lasix 40 IV daily. ?UA negative. ? Once more awake attempt PT/OT ? May consider event monitor at discharge however patient may not be candidate for pacemaker after discussion with cardiology. Will continue to monitor on telemetry with increased dose of metoprolol for now. Attestations 2 Medical Necessity Statement*: Patient is somnolent. Unsafe to discharge home at this time. We will be doing an MRI to rule out stroke. 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
--- NOTE | 2024-12-07 11:50 | MR_ITS ---
WS: [id number] MRI BRAIN WITHOUT CONTRAST HISTORY: r/o stroke COMPARISON: CT head 12/06/2024 TECHNIQUE: Diffusion imaging, multiplanar T1, T2 and FLAIR imaging obtained. Normal diffusion imaging. No acute infarct. There is scattered tiny foci of hemosiderin within the br ain. Hemosiderin is predominantly within the cerebrum with sparing of the cerebellum. Severe atrophy and severe chronic white matter disease. There is confluent increased T2 and FLAIR sig nal surrounding the ventricles extending towards the vertex and the subcortical white matter. No larg e prior infarct. Severe bilateral hippocampal atrophy. Ventricles and extra-axial spaces are prominent on the basis of atrophy. No inferior displacement of cerebellar tonsils. The sella turcica and pituitary gland are unremarkabl e. Dural venous sinuses and [place] of [place] demonstrate no abnormality on this unenhanced studies. Paranasal sinuses: Mild mucoperiosteal disease sphenoid sinuses. Mastoid air cells: Normal. Calvarium and scalp: Intact. MR/MR head wo con* [id number] IMPRESSION: 1. No acute infarct or hemorrhage. 2. Severe small vessel ischemic disease throughout the white matter. 3. Severe atrophy with several chronic, tiny foci of hemosiderin in the cerebr um. Hemosiderin was noted on the prior study along with severe atrophy. 4. Severe hippocampal atrophy, unchanged.
--- NOTE | 2024-12-07 11:50 | MRR_ITS ---
PROCEDURE INFORMATION: Exam: MRA Neck Without Contrast Exam date and time: 12/07/2024 3:21 PM Age: 89 years old Clinical indication: Weakness; Patient HX: AMS, PT sedated still motion. Non contrast exam; Additional info: R/O stroke TECHNIQUE: Imaging protocol: Magnetic resonance angiography of the neck without contrast. Kjjr-jo-fmkvup (TOF) technique was utilized for this exam. COMPARISON: CT cervical spin wo con* [id number] 12/06/2024 11:24 AM FINDINGS: Right common carotid artery: Mild stenosis at the carotid bulb. No dissection or occlusion. Right internal carotid artery: No stenosis of the extracranial segment. No dissection or occlusion. Right external carotid artery: No stenosis. No dissection or occlusion of the origin. Right vertebral artery: No stenosis. No dissection or occlusion. Left common carotid artery: Mild stenosis at the carotid bulb. No dissection or occlusion. Left internal carotid artery: Mild stenosis at the origin. No dissection or occlusion. Left external carotid artery: No stenosis. No dissection or occlusion of the origin. Left vertebral artery: No stenosis. No dissection or occlusion. MR/MR angio neck wo con [id number] IMPRESSION: 1. No severe large vessel stenosis or occlusion. 2. Mild stenosis seen at the carotid bulbs and origin of the left internal carotid artery. REFERENCES: NASCET CRITERIA. The degree of stenosis in the cervical segment of the internal carotid artery is based on NASCET criteria. Normal is no stenosis. Mild is less than 50% stenosis. Moderate is 50-69% stenosis. Severe is 70% to 99% stenosis. Total occlusion is no detectable patent lumen.
--- NOTE | 2024-12-07 11:50 | MR_ITS ---
WS: [id number] ANGIOGRAPHY [place] HISTORY: r/o stroke COMPARISON: None available. TECHNIQUE: 3-D MR angiography is performed of the [place]. All images are reviewed including source images. Distal vertebral and basilar arteries are intact with no significant stenosis or plaque. Posterior ce rebral arteries are normal course and caliber. Posterior communicating arteries are small caliber. RI GHT is not identified and the LEFT is hypoplastic. Mild luminal irregularity in the cavernous carotid arteries but no stenosis. Supraclinoid carotid art eries are mildly narrowed. Mild irregularity of the middle cerebral arteries and a paucity of vessels distally. No occlusions identified. This does correspond to the severe white matter disease seen by MRI. No aneurysms. Anterior cerebral arteries are both patent. MR/MR angio head wo con [id number] IMPRESSION: 1. Paucity of vessels in the distal MCA territories. Corresponds to the severe white matter disease findings seen on MRI brain. 2. Atherosclerotic disease in the distal carotid arteries and middle cerebral arteries. No aneurysms or occlusions.
[2024-12-07] MEDS: LORazepam 2 mg/mL INJ 1 mL 1 MG IVP (13:30)
[2024-12-07] MEDS: OLANZapine 10 mg VIAL 5 MG IM (14:11)
[2024-12-07] MEDS: water for injection-sterile 10 ML (14:14)
[2024-12-07] MEDS: FUROsemide 10 mg/mL SDV 4mL 40 MG IVP (18:11)
--- NOTE | 2024-12-07 18:29 | PC.NURSE ---
Verbal orders from Dr. Lorenz to hold further PO medications until patient is awake enough to take them.
--- NOTE | 2024-12-07 22:26 | ECG_ITS ---
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
[2024-12-07] MEDS: metoprolol tartrate 1 mg/1 mL SDV 5 mL 2.5 MG IVP (22:56)
[2024-12-08] VITALS (10 sets, daily range): BP systolic 98–188; BP diastolic 44–76; PULSE 65–81; RESP 14–19; TEMP 36.4–36.8; O2SAT 94–97
[2024-12-08 00:04] LABS: Albumin Level 3.5 g/dL (3.5-5.2); Anion Gap 14.9 (5-19); Blood Urea Nitrogen 16 mg/dL (8-23); Calcium 9.7 mg/dL (8.5-10.5); Carbon Dioxide 28 mmol/L (22-29); Chloride 99 mmol/L (98-107); Creatinine Clr Calc Pharmacy 40.4518; Glucose 103 mg/dL (65-115); Magnesium 2.1 mg/dL (1.7-2.3); Phosphorus 3.1 mg/dL (2.5-4.5); Potassium 3.9 mmol/L (3.5-5.1); Sodium 138 mmol/L (136-145)
--- NOTE | 2024-12-08 00:13 | PC.NURSE ---
Patient had run of what appeared to be V-tach on bus driver/monitor at 22:24. EKG taken, which showed A-fib. By the time EKG was taken, patient was not showing arrhythmia on bus driver/monitor anymore. Image of EKG and telemetry strip of arrhythmia sent to Dr. Salcedo via voalte. Dr. Salcedo notified that patient did not receive PO Metoprolol or PO Hydralazine due to being unable to swallow PO due to AMS. Renal panel and magnesium level ordered. 2.5 mg IV Metoprolol x1 ordered.
[2024-12-08] MEDS: heparin 5,000 unit/mL INJ 1 mL 5000 UNIT SUBCUT ×2 (05:34→18:01)
[2024-12-08 07:00] LABS: Basophils # 0.1 10^3/uL (0.0-0.1); Basophils % 0.7 %; Eosinophils # 0.2 10^3/uL (0.0-0.8); Eosinophils % 2.9 %; Hematocrit 46.2 % (37-53); Lymphocytes # 1.8 10^3/uL (0.8-4.8); Lymphocytes % 25.1 %; Mean Corpuscular Hemoglobin 29.4 pg (27-33); Mean Corpuscular Volume 91.8 fl (82-101); Monocytes # 0.6 10^3/uL (0.2-0.9); Monocytes % 8.9 %; Neutrophils # 4.36 10^3/uL (1.8-7.7); Neutrophils % 62.3 %; Nucleated Red Blood Cells % 0 %; Platelet Count 133 10^3/cmm (157-399); Red Blood Count 5.03 10^6/uL (3.85-5.65); Red Cell Distribution Width 14.2 % (12.1-15.1)
[2024-12-08 07:23] LABS: Anion Gap 11.8 (5-19); Blood Urea Nitrogen 18 mg/dL (8-23); Calcium 9.7 mg/dL (8.5-10.5); Carbon Dioxide 31 mmol/L (22-29); Chloride 103 mmol/L (98-107); Creatinine Clr Calc Pharmacy 37.1891; Glucose 93 mg/dL (65-115); Magnesium 2.1 mg/dL (1.7-2.3); Osmolality Calculated 296 mOsm/kg (285-295); Potassium 3.8 mmol/L (3.5-5.1); Sodium 142 mmol/L (136-145)
--- NOTE | 2024-12-08 10:12 | P.CONIM_ITS ---
Providers/Reason For Consult 2 Consulting Physician/Specialty*: Álvaro Vidal MD neurology and epilepsy Reason for Consult*: Altered mental status Attending Physician: Mira Lorenz MD Primary Care Provider: CELIO Bernardo History of Present Illness History of Present Illness Oswaldo Baron is a 89 year old male with a history of Alzheimer's disease, low serum B12, and heart disease. Patient followed by cardiology. Patient was reported to be in his usual state of health until 12/06/2024. The patient was reported to be found down at home in the hallway and was bleeding from his right ear and was complaining of occipital headache and left hip pain. The patient was taken to [facility] emergency department. Noncontrast head CT and CT of the cervical spine reported to be negative. Head MRI was also obtained and reported to be negative. In view of the patient's change in mental status neurology consult was obtained. According to the family the patient has not eaten or taking in oral fluids since hospitalization due to his change in mental status and reports of some concerns for congestive heart failure. During his hospitalization the patient was discovered to have new onset atrial fibrillation. On the morning of 12/08/2024 the patient's family was at the bedside (patient's daughter and ). The patient was reported by the family to experience some difficulty with oral secretions. The patient was arousable and able to speak with me and follow instructions this morning. He did have dysarthric speech. Patient pupils were reactive and patient able to follow commands and move all extremities. I spoke with the hospitalist regarding starting patient on IV fluids with glucose and consider true nutrition via NG tube temporarily. The family agreed with this plan. I recommended holding off on obtaining lumbar puncture at this time. Review of Systems 2 General: Reports: 10 or more systems reviewed and unremarkable except in HPI and below Medications/Allergies Home Medications Medication Instructions Recorded Confirmed Last Taken Type amlodipine 10 mg tablet 10 mg PO DAILY #90 tabs 05/24/24 12/06/24 12/05/24 Rx diclofenac sodium 1 % topical gel 2 g topical QID PRN joint pain 05/24/24 12/06/24 12/05/24 Rx (Voltaren Arthritis Pain) #100 grams magnesium L-lactate 84 mg 84 mg PO DAILY #90 tabs 05/24/24 12/06/24 12/05/24 Rx tablet,extended release (Magtab) allopurinol 300 mg tablet 300 mg PO DAILY #90 tabs 10/04/24 12/06/24 12/05/24 Rx aripiprazole 5 mg tablet (Abilify) 5 mg PO DAILY #90 tabs 10/04/24 12/06/24 12/05/24 Rx duloxetine 20 mg capsule,delayed 20 mg PO .in AM #90 caps 10/04/24 12/06/24 12/05/24 Rx release (Cymbalta) hydralazine 25 mg tablet 25 mg PO TID #270 tabs 10/04/24 12/06/24 12/05/24 Rx losartan 100 mg tablet 100 mg PO DAILY #90 tabs 10/04/24 12/06/24 12/05/24 Rx metoprolol tartrate 25 mg tablet 25 mg PO BID #180 tabs 10/04/24 12/06/24 12/05/24 Rx mupirocin 2 % topical ointment 1 applic topical BID #15 grams 10/04/24 12/06/24 12/05/24 Rx trazodone 50 mg tablet 50 mg PO .at bedtime for sleep #30 11/08/24 12/06/24 12/05/24 Rx tabs Allergies Allergy/AdvReac Type Severity Reaction Status Date / Time atorvastatin [From Lipitor] Allergy Unknown Verified 12/06/24 11:07 Current Medications Generic Name Dose Route Start Last Admin Trade Name Freq PRN Reason Stop Dose Admin Aripiprazole 5 mg 12/07/24 09:00 12/08/24 07:48 Aripiprazole 10 Mg Tablet PO Not Given DAILY GONZALO Duloxetine HCl 20 mg 12/07/24 06:00 12/08/24 02:51 Duloxetine 20 Mg Capsule PO Not Given QAM GONZALO Heparin Sodium (Porcine) 5,000 unit 12/06/24 16:30 12/08/24 05:34 Heparin 5,000 Unit/Ml Inj 1 Ml SUBCUT 5,000 unit Q12H GONZALO Administration Hydralazine HCl 25 mg 12/06/24 21:00 12/08/24 07:49 Hydralazine 25 Mg Tablet PO Not Given TID GONZALO Losartan Potassium 100 mg 12/07/24 09:00 12/08/24 07:49 Losartan 50 Mg Tablet PO Not Given DAILY GONZALO Magnesium Lactate 84 mg 12/07/24 09:00 12/08/24 07:49 Magnesium Lactate 84 Mg Tablet PO Not Given DAILY GONZALO Metoprolol Tartrate 37.5 mg 12/07/24 18:00 12/08/24 07:49 Metoprolol Tartrate 25 Mg Tablet PO Not Given BID GONZALO PFSH Acute 2 PFSH: Medical History PVC (premature ventricular contraction) History of nonmelanoma skin cancer Mixed hyperlipidemia Statin intolerance Controlled gout Essential hypertension Slow transit constipation Surgical History History of endarterectomy Left History of cataract extraction Bilateral Family History Brother Hypertension Diabetes Hyperlipidemia CAD (coronary artery disease) unknown onset Mother Diabetes Stroke CAD (coronary artery disease) [place] in her 70's Denies family history of Clotting disorder Dementia Chronic kidney disease (CKD) Suicide Anesthesia complication Bleeding disorder Lung disease Cancer Social History Smoking and tobacco/nicotine status: never used tobacco/nicotine Second hand smoke exposure: No Alcohol intake: never Substance/Drug Use: never Adopted: No Caregiver/support person: No Lives independently: Yes Household members: spouse Housing: House Marital status: Number of children: 2 service: Yes status: Retired branch: [employer] Current occupational status: retired Do you think of yourself as: Straight/Heterosexual Current gender identity: Male Vitals/I&O/Wt Last Vital Signs Temp 97.9 F 12/08/24 08:00 Pulse 78 12/08/24 08:00 Resp 17 12/08/24 08:00 BP 113/76 12/08/24 08:41 Pulse Ox 97 12/08/24 08:00 O2 Del Method Room Air 12/08/24 08:00 12/07/24 12/08/24 12/08/24 22:59 06:59 14:59 Intake Total 0 / 40 0 / 40 10 10 Output Total 1999 600 / 2600 Balance -1999 / -1960 -600 / -2560 Weight last 48 hrs Weight 188 lb 14.4 oz Weight 197 lb 11.2 oz Weight 197 lb 11.2 oz Weight 190 lb Physical Exam 2 Narrative: The patient was sleeping but arousable to tactile stimuli. Speech dysarthric. Patient's pupils 3 mm to 4 mm round reactive to light and accommodation. Extraocular movements intact. Throat clear. Patient was able to protrude his tongue. I did not observe any obvious facial weakness. Other cranial nerves appear to be intact. Motor testing: Patient had good handgrips bilaterally. He was able to move all extremities upper and lower to command. Deep tendon reflex revealed plantar responses bilaterally. Sensory examination was intact to touch. Throat clear. Lungs revealed no obvious wheezing. Heart atrial fibrillation. Extremities were negative for cyanosis. Urinary Catheter Management: Humphries: Cath Placed During This Visit: yes Reason for Continuing Indwelling Catheter: Accurate Measurement of Urinary Output in Critically Ill Patients Urinary Catheter Date of Insertion: 12/06/24 Urinary Catheter Time of Insertion: 17:30 Data 12/08/24 05:30 12/08/24 05:30 A&P Assessment and plan (1) Altered mental status: Impression: 1. Altered mental status 2. Possible dehydration 3. New onset atrial fibrillation 4. History of low B12 Plan: 1. Recommend IV fluids with glucose for hydration 2. Recommend tube feedings via NG tube 3. Recommend speech therapy evaluation to assess swallow 4. Recommend obtaining B12 level and consider IM B12 replacement if B12 level is low since patient has history of low B12 5. Since patient is alert and afebrile recommend holding off on obtaining lumbar puncture under fluoroscopy by radiology at this time Consult Attestations 2 Medical Necessity Statement: The patient was evaluated by neurology for altered mental status Coding Level of Care Code 07445 Diagnoses Altered mental status R41.82
[2024-12-08] MEDS: thiamine 100 mg/mL 2mL SDV IVP (10:37)
[2024-12-08] MEDS: sodium chloride 0.9% 500 ML 125 ML IV (10:37)
--- NOTE | 2024-12-08 11:37 | P.PN_ITS ---
Subjective 2 Subjective: Seen this morning. Patient is a lot more awake alert. Working with speech therapy at this time. Trazodone was not given last night MRIs negative for stroke. Neurology is also evaluated the patient. Discussed with patient's family regarding stopping trazodone going forward and perhaps using a as needed medication if needed for agitation at nighttime. Also discussed NG tube placement as recommended by neurology however family and I both feel that patient will pull it out. Also discussed a PEG tube going forward as a likely possibility however that is something a little too premature to talk about at this time as patient is not fully awake yet. Probably need to wait longer to see if patient is much more awake to participate in eating. Patient did diurese really well pedal edema has resolved. He is -5 L since admission Ordered 500 cc normal saline bolus along with 125 cc/h D5 normal saline for some rehydration. He responded very well to Lasix. I would probably discharge home on as needed Lasix as I discussed that with the family. Also discussed again that he is not a candidate for anticoagulation secondary to his frequent falls. Family agrees with this. I also discussed with family that we may potentially discharge him later in the day if he is a lot more alert and able to eat. Vitals/I&O/Wt Last Vital Signs Temp 97.9 F 12/08/24 08:00 Pulse 78 12/08/24 11:18 Resp 18 12/08/24 11:18 BP 113/76 12/08/24 08:41 Pulse Ox 97 12/08/24 11:18 O2 Del Method Room Air 12/08/24 11:18 12/07/24 12/08/24 12/08/24 22:59 06:59 14:59 Intake Total 0 / 40 0 / 40 10 / 10 Output Total 1999 600 / 2600 Balance -1999 / -1960 -600 / -2560 10 Weight last 48 hrs Weight 85.684 kg Weight 89.675 kg Weight 89.675 kg Physical Exam 2 Narrative: General: Alert and oriented to self, attempting to eat with speech therapy. Currently undergoing evaluation. Able to state his name and date of . HEENT: Normocephalic, atraumatic, EOMI, breathing comfortably on room air. Cardio: Irregularly irregular, normal S1-S2, no gross murmurs. Respiratory: Clear to auscultation bilaterally no wheezes no rhonchi GI: Abdomen soft, nontender, bowel sounds + Extremities: Pedal edema has resolved. Neuro: Able to move all 4 extremities in response to commands. Urinary Catheter Management: Humphries: Cath Placed During This Visit: yes Reason for Continuing Indwelling Catheter: Accurate Measurement of Urinary Output in Critically Ill Patients Urinary Catheter Date of Insertion: 12/06/24 Urinary Catheter Time of Insertion: 17:30 Data 12/08/24 05:30 12/08/24 05:30 A&P Assessment and plan (1) Essential hypertension: (2) PVC (premature ventricular contraction): (3) Mixed hyperlipidemia: (4) Controlled gout: (5) Alzheimer's dementia: Qualifiers: Alzheimer's disease onset: late onset Dementia severity: moderate D ementia behavioral or psychological symptom: with other behavioral disturbance Qualified Code(s): G30.1 - Alzheimer's disease with late onset; F02.B18 - Dementia in other diseases classified elsewhere, moderate, with other behavioral disturbance (6) Weakness: (7) Frequent falls: Plan #Altered mental status with underlying dementia, possible acute metabolic encephalopathy versus worsening dementia #Bilateral pedal edema, congestive heart failure? #Frequent falls #CKD #Atrial fibrillation, possibly new onset? ? Continue to monitor on telemetry. CT head is negative, chest x-ray is negative, CT C-spine, hip x-rays negative, urinalysis negative white count is normal. Does have CKD with creatinine is at patient's baseline. He may possibly having worsening dementia. I do not believe there is an underlying infection at this time. He denies any fever cough shortness of breath nausea vomiting diarrhea abdominal pain constipation as per family. ? Possibly new onset congestive heart failure?. Will place on Lasix 20 IV daily and see response ? Family did report blood in urine. Urinalysis does not show any RBCs at this time. Possible rhabdo? ? Will check CPK ? Vitals are stable ? Continue home hydralazine 25 3 times daily ? Continue losartan 100 daily ? Continue metoprolol 25 twice daily ? Continue Abilify 5 daily ? Hold off on amlodipine at this time. Will monitor patient with above medications at this time ? Check PT OT ? Check bladder scan. If patient retaining will place Humphries catheter ? Will observe patient in the hospital overnight. Will check an echocardiogram. If warranted may consult cardiology. Patient has worn a Holter monitor in the past. Does have a history of PVCs. Had a goals of care discussion with the family and they would like to elect for DNR/DNI status. 12/07/2024 -Patient does have a new diagnosis of atrial fibrillation. On telemetry overnight there is evidence of atrial fibrillation/flutter and conversion to sinus thereafter. I have discussed with the on-call foreign exchange position clerk and reviewed telemetry strips and EKG. We will increase metoprolol to metoprolol to tartrate 37.5 twice daily at this time. ? Due to new diagnosis of A-fib and suspicion of stroke due to patient's somnolence and change in mental status acutely over the last few days with increased frequent falls will order MRI head and MRA head and neck to rule out stroke. Discussed this with the family in detail. Secondary to patient's frequent falls patient would not be candidate for anticoagulation as there is a risk of bleed. Family agrees to that at this time. ? Will place on aspirin 325 daily. ? Continue Abilify 5 daily. I will stop trazodone at this time ? Continue hydralazine 25 3 times daily ? Continue to hold amlodipine ? Humphries catheter placed yesterday. ? Echo shows moderate to moderate mitral regurgitation. Will continue diuresis with Lasix. Continue Lasix 40 IV daily. ?UA negative. ? Once more awake attempt PT/OT ? May consider event monitor at discharge however patient may not be candidate for pacemaker after discussion with cardiology. Will continue to monitor on telemetry with increased dose of metoprolol for now. 12/08/2024 -Hold Abilify today. May restart tomorrow. ? Continue rest of home medications as it is ? Stop trazodone. May consider Seroquel 12.5 at bedtime as needed at discharge. ? Stop Lasix ? Creatinine 1.6 today. Will rehydrate patient slightly with 500 cc normal saline bolus and placed on D5 normal saline 125 cc/h ? Addressed and discussed feeding tube situation with family. They are going to think about it. See HPI portion of this note. ? Will continue to monitor patient at this time. May consider discharge later in the day if he is a lot more awake. ? He does have persistent atrial fibrillation as evidenced on telemetry. Continue metoprolol 37.5 twice daily. ? He is not a candidate for anticoagulation secondary to dementia and frequent falls. Most recently he fell hit his head and had bleeding around his ear. ? PT OT ? Discussed all the above in detail with the family and they are on board with the plan. All workup so far has been negative. Attestations 2 Medical Necessity Statement*: Potential consideration for discharge later today if patient is more awake and starting to eat. 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
[2024-12-08 11:44] LABS: Vitamin B12 252 pg/mL (232-1245)
[2024-12-08] MEDS: dextrose 5%-sod chloride 0.9% 1,000 ML 125 ML IV (15:49)
[2024-12-08] MEDS: cyanocobalamin 1,000 mcg/mL SDV 1000 MCG SUBCUT (18:01)
[2024-12-08] MEDS: metoprolol tartrate 25 mg Tablet 37.5 MG PO (18:02)
[2024-12-08] MEDS: hyDRALAzine 25 mg Tablet PO (19:54)
--- NOTE | 2024-12-08 23:24 | PC.NURSE ---
of patient confused and wandering. Gunjan and Pratibha notified. I stated to Pratibha that I fear she will wander and get lost. Pratibha states that she is on her way.
[2024-12-09] VITALS (7 sets, daily range): BP systolic 91–135; BP diastolic 51–78; PULSE 66–81; RESP 14–20; TEMP 36.4–36.8; O2SAT 93–95
--- NOTE | 2024-12-09 01:53 | PC.NURSE ---
Day shift RN stated during shift change report that patient is supposed to get 500 ml of D5NS and then it is to be discontinued.
[2024-12-09] MEDS: LORazepam 0.5 mg Tablet PO (02:37)
--- NOTE | 2024-12-09 03:26 | PC.NURSE ---
Addendum entered by Margot Rooney RN 12/09/24 04:47: Patient will not keep telemetry on. Original Note: Dr. Salcedo notified that family is asking for something to help patient sleep due to patient being restless and agitated. Daughter and at bedside trying to keep patient in bed and trying to keep patient from pulling out doss. Notified that patient became lethargic previously after receiving IV Ativan and IM Zyprexa. Notified that patient's Trazodone has been discontinued. Notified that patient has dementia. Ordered to give 0.5 mg x1 of PO Ativan. Family at bedside agreed to this.
[2024-12-09 06:49] LABS: Basophils % 0.4 %; Eosinophils # 0.2 10^3/uL (0.0-0.8); Eosinophils % 2.9 %; Hematocrit 46.9 % (37-53); Lymphocytes # 1.8 10^3/uL (0.8-4.8); Mean Corpuscular HGB Conc 31.6 g/dL (30-55); Mean Corpuscular Volume 94.9 fl (82-101); Mean Platelet Volume 12.7 fL (7.4-10.4); Monocytes # 0.9 10^3/uL (0.2-0.9); Monocytes % 10.4 %; Neutrophils # 5.42 10^3/uL (1.8-7.7); Neutrophils % 65.1 %; Nucleated Red Blood Cells % 0 %; Platelet Count 120 10^3/cmm (157-399); Red Blood Count 4.94 10^6/uL (3.85-5.65); Red Cell Distribution Width 14.1 % (12.1-15.1); White Blood Count 8.33 10^3/uL (3.29-11.43)
[2024-12-09 07:01] LABS: Anion Gap 13.9 (5-19); Blood Urea Nitrogen 20 mg/dL (8-23); Calcium 9.5 mg/dL (8.5-10.5); Carbon Dioxide 25 mmol/L (22-29); Chloride 102 mmol/L (98-107); Creatinine Clr Calc Pharmacy 42.5018; Glucose 95 mg/dL (65-115); Magnesium 2.1 mg/dL (1.7-2.3); Osmolality Calculated 286 mOsm/kg (285-295); Potassium 3.9 mmol/L (3.5-5.1); Sodium 137 mmol/L (136-145)
--- NOTE | 2024-12-09 07:40 | PC.OT ---
Pt is discharged from OT services due to going on hospice at this time.
[2024-12-09] MEDS: magnesium lactate 84 mg Tablet PO (08:50)
[2024-12-09] MEDS: metoprolol tartrate 25 mg Tablet 37.5 MG PO (08:50)
[2024-12-09] MEDS: acetaminophen 325 mg Tablet 650 MG PO ×2 (08:50→14:00)
[2024-12-09] MEDS: hyDRALAzine 25 mg Tablet PO (08:51)
[2024-12-09] MEDS: losartan 50 mg Tablet 100 MG PO (08:51)
[2024-12-09] MEDS: duloxetine 20 mg Capsule PO (08:51)
[2024-12-09] MEDS: thiamine 100 mg/mL 2mL SDV IVP (08:52)
[2024-12-09] MEDS: ARIPiprazole 10 mg Tablet 5 MG PO (08:52)
[2024-12-09] MEDS: heparin 5,000 unit/mL INJ 1 mL 5000 UNIT SUBCUT (08:52)
--- NOTE | 2024-12-09 09:11 | P.DS_ITS ---
Discharge Providers Date of Admission: 12/06/24 16:46 Date of Discharge: December 09, 2024 Attending Provider at Admission: Mira Lorenz MD Attending Provider at Discharge: Mira Lorenz MD Primary Care Provider: CELIO Bernardo Diagnoses at Discharge Discharge Diagnosis (1) Essential hypertension: Status: Chronic (2) PVC (premature ventricular contraction): Status: Acute (3) Mixed hyperlipidemia: Status: Chronic (4) Controlled gout: Status: Chronic (5) Alzheimer's dementia: Status: Chronic Qualifiers: Alzheimer's disease onset: late onset Dementia behavioral or psychological symptom: with other behavioral disturbance Dementia severity: moderate Qualified Code(s): G30.1 - Alzheimer's disease with late onset; F02.B18 - Dementia in other diseases classified elsewhere, moderate, with other behavioral disturbance (6) Weakness: Status: Acute (7) Frequent falls: Status: Acute Reason for Visit Reason for Visit: Fall, AMS Hospital Course Hospital Course Oswaldo Baron is a 89 year old male With past medical history of hypertension, gout, hyperlipidemia, PVCs who presented to the hospital today brought in by family for complaint of fall that happened this morning. He fell yesterday as well where the neighbor had to lift him up from the sofa. Patient's family states that he has been having frequent falls lately where his legs just give out and he feels weak. He does not complain of any lightheadedness prior to falling. They also report he had an episode of blood in urine this morning. Also has history of BPH however is not on any medications for it as far as they are aware. He has a really good appetite and eats. He does have a diagnosis of Alzheimer's dementia for the last 2 years. He is quite functional and able to recognize his family members and perform his ADLs. He does have some bad days and there is some sundowners but for the most part he is doing okay. He follows with Cindy Kaye as an outpatient. Patient's family also reports that he has pedal edema for which his primary care doctor was concerned for possible heart failure however they state that there was no workup ordered?. Patient is unable to provide any history at this time since he is confused. He is also hard of hearing. Patient is not taking any of his home medications today. Seen in ER room 7. On telemetry he does seem to have tachycardia with heart rate up to 150 160 at rest and thereafter having lower heart rates with values in 60s with some prolonged beats. No real sinus pause noted on telemetry while I was in the room. Patient has no known history of A-fib. Chest x-ray showed cardiomegaly CT cervical spine shows no acute fracture or dislocation Hip pelvis x-ray shows no acute traumatic injury ? CT head shows no evidence of intracranial hemorrhage or mass effect EKG did show A-fib heart rate [address] elevation. Urinalysis is normal during hospitalization patient had an MRI brain, MRA head and neck and was also seen by neurology. He is starting to become more and is coherent. Able to move all 4 extremities. Stroke was ruled out. He was also diuresed during hospitalization as he has mild to moderate regurgitation on his echo. Patient was somewhat over diuresed and IV fluids were restarted. Seen this morning. He appears well. He is also able to eat. Trazodone has been stopped going forward. Patient's family has opted to take patient home with hospice at this time. Social workers will help coordinate this. We will send patient home with hospice as per family wishes. I have updated metoprolol titrated to 7.5 with new diagnosis of A-fib. Patient is not a candidate for anticoagulation secondary to frequent falls. Have also ordered as needed Lasix for edema. Is to follow-up with primary care going forward. Physical Exam Narrative: General: Alert and oriented to self, HEENT: Normocephalic, atraumatic, EOMI, breathing comfortably on room air. Cardio: Irregularly irregular, normal S1-S2, no gross murmurs. Respiratory: Clear to auscultation bilaterally no wheezes no rhonchi GI: Abdomen soft, nontender, bowel sounds + Extremities: Pedal edema has resolved. Neuro: Able to move all 4 extremities in response to commands. Urinary Catheter Management: Humphries: Cath Placed During This Visit: yes Reason for Continuing Indwelling Catheter: Other Urinary Catheter Date of Insertion: 12/06/24 Urinary Catheter Time of Insertion: 17:30 Discharge Data Studies Completed and Pending Completed Studies During Hospitalization Category Date Time Status CT cervical spin wo con* [id number] Stat Cat Scan 12/06/24 11:[address] head wo con* [id number] Stat Cat Scan 12/06/24 11:45 Completed XR chest 1V portable [id number] Stat Exams 12/06/24 11:06 Completed XR hip LT 2-3V wo/w pel* [id number] Stat Exams 12/06/24 11:43 Completed MR head wo con* [id number] Stat MRI 12/07/24 11:50 Completed MRA head [MR angio head wo con [id number]] Stat MRI 12/07/24 11:50 Completed MRA neck [MR angio neck wo con [id number]] Stat MRI 12/07/24 11:50 Completed CV. echo complete* [id number] Stat Ultrasound 12/06/24 16:17 Completed Pending at discharge Category Date Time Status Glucose CSF Stat Lab 12/07/24 18:38 Uncollected Total Protein CSF Stat Lab 12/07/24 18:38 Uncollected VDRL on CSF Stat Lab 12/07/24 18:38 Uncollected Radiology Impressions Chest X-Ray 12/06/24 11:06 IMPRESSION: 1. Cardiomegaly. Next 2. Minimal atelectasis or scarring at the lung bases. Cervical Spine CT 12/06/24 11:11 IMPRESSION: No evidence of acute fracture or dislocation. Hip/Pelvis X-Ray 12/06/24 11:43 IMPRESSION: No acute traumatic injury. Head CT 12/06/24 11:45 IMPRESSION: 1. No evidence of intracranial hemorrhage or mass effect. 2. Advanced small vessel changes. Moderate parenchymal volume loss similar to previous. 3. No acute intracranial findings. Head MRI 12/07/24 11:50 IMPRESSION: 1. No acute infarct or hemorrhage. 2. Severe small vessel ischemic disease throughout the white matter. 3. Severe atrophy with several chronic, tiny foci of hemosiderin in the cere kate. Hemosiderin was noted on the prior study along with severe atrophy. 4. Severe hippocampal atrophy, unchanged. Head MRA 12/07/24 11:50 IMPRESSION: 1. Paucity of vessels in the distal MCA territories. Corresponds to the severe white matter disease findings seen on MRI brain. 2. Atherosclerotic disease in the distal carotid arteries and middle cerebral arteries. No aneurysms or occlusions. Neck MRA 12/07/24 11:50 IMPRESSION: 1. No severe large vessel stenosis or occlusion. 2. Mild stenosis seen at the carotid bulbs and origin of the left internal carotid artery. REFERENCES: NASCET CRITERIA. The degree of stenosis in the cervical segment of the internal carotid artery is based on NASCET criteria. Normal is no stenosis. Mild is less than 50% stenosis. Moderate is 50-69% stenosis. Severe is 70% to 99% stenosis. Total occlusion is no detectable patent lumen. Laboratory Results WBC 8.33 10^3/uL (3.29-11.43) 12/09/24 06:27 Corrected WBC Cancelled 12/06/24 11:46 RBC 4.94 10^6/uL (3.85-5.65) 12/09/24 06:27 Hgb 14.80 g/dL (11.27-16.99) 12/09/24 06:27 Hct 46.9 % (37-53) 12/09/24 06:27 MCV 94.9 fl (82-101) 12/09/24 06:27 MCH 30.0 pg (27-33) 12/09/24 06:27 MCHC 31.6 g/dL (30-55) 12/09/24 06:27 RDW 14.1 % (12.1-15.1) 12/09/24 06:27 Plt Count 120 10^3/cmm (157-399) L 12/09/24 06:27 MPV 12.7 fL (7.4-10.4) H 12/09/24 06:27 Gran % Cancelled 12/06/24 11:46 Neut % (Auto) 65.1 % 12/09/24 06:27 Lymph % (Auto) 21.0 % 12/09/24 06:27 [place] % (Auto) 10.4 % 12/09/24 06:27 Eos % (Auto) 2.9 % 12/09/24 06:27 Baso % (Auto) 0.4 % 12/09/24 06:27 Neut # (Auto) 5.42 10^3/uL (1.8-7.7) 12/09/24 06:27 Lymph # (Auto) 1.8 10^3/uL (0.8-4.8) 12/09/24 06:27 [place] # (Auto) 0.9 10^3/uL (0.2-0.9) 12/09/24 06:27 Eos # (Auto) 0.2 10^3/uL (0.0-0.8) 12/09/24 06:27 Baso # (Auto) 0.0 10^3/uL (0.0-0.1) 12/09/24 06:27 Absolute Gran (auto) Cancelled 12/06/24 11:46 Nucleated RBC % (auto) 0 % 12/09/24 06:27 Nucleated RBCs # 0.0 /100WBC 12/09/24 06:27 Sodium 137 mmol/L (136-145) 12/09/24 06:27 Potassium 3.9 mmol/L (3.5-5.1) 12/09/24 06:27 Chloride 102 mmol/L (98-107) 12/09/24 06:27 Carbon Dioxide 25 mmol/L (22-29) 12/09/24 06:27 Anion Gap 13.9 (5-19) 12/09/24 06:27 BUN 20 mg/dL (8-23) 12/09/24 06:27 Creatinine 1.4 mg/dL (0.7-1.2) H 12/09/24 06:27 GFR Calculation Not Reportable 12/09/24 06:27 Glucose 95 mg/dL (65-115) 12/09/24 06:27 POC Glucose 87 mg/dL (70-110) 12/06/24 11:40 Calculated Osmolality 286 mOsm/kg (285-295) 12/09/24 06:27 Calcium 9.5 mg/dL (8.5-10.5) 12/09/24 06:27 Phosphorus 3.1 mg/dL (2.5-4.5) 12/07/24 23:29 Magnesium 2.1 mg/dL (1.7-2.3) 12/09/24 06:27 Total Bilirubin 0.9 mg/dL (0.15-1.2) 12/06/24 11:46 AST 20 U/L (0-40) 12/06/24 11:46 ALT 15 U/L (0-41) 12/06/24 11:46 Alkaline Phosphatase 105 U/L (40-130) 12/06/24 11:46 Troponin T Baseline 30 ng/L (0-15) H 12/06/24 16:35 Troponin T 120 Minute 30.46 ng/L (0-15) H 12/06/24 18:52 Delta Troponin T 0.46 ABS# (0-10) 12/06/24 18:52 Troponin T Hi Sens 6Hr 32.32 ng/L (0-15) H 12/06/24 22:27 Troponin T Hi Sens 6Hr Delta 2.32 ng/L (0-12) 12/06/24 22:27 NT-Pro-B Natriuret Pep 2305 pg/mL (0-450) H 12/06/24 11:46 Total Protein 6.6 g/dL (6.6-8.7) 12/06/24 11:46 Albumin 3.5 g/dL (3.5-5.2) 12/07/24 23:29 Globulin 2.7 g/dL (1.3-4.6) 12/06/24 11:46 Vitamin B12 252 pg/mL (232-1245) 12/08/24 05:30 Procalcitonin 0.05 ng/mL (0-0.5) 12/06/24 11:46 TSH 3.99 uIU/mL (0.27-4.20) 12/06/24 11:46 TSH 4.08 uIU/mL (0.27-4.20) 12/06/24 11:46 Urine Color Yellow (Yellow) 12/06/24 12:02 Urine Appearance Clear (CLEAR) 12/06/24 12:02 Urine pH 5.5 (5-7) 12/06/24 12:02 Ur Specific [place] 1.017 (1.005-1.030) 12/06/24 12:02 Urine Protein Negative (Negative) 12/06/24 12:02 Urine Glucose (UA) Negative (Normal) 12/06/24 12:02 Urine Ketones Negative (Negative) 12/06/24 12:02 Urine Blood Negative (Negative) 12/06/24 12:02 Urine Nitrate Negative (Negative) 12/06/24 12:02 Urine Bilirubin Negative (Negative) 12/06/24 12:02 Urine Urobilinogen 1.0 mg/dL (Negative) 12/06/24 12:02 Ur Leukocyte Esterase Negative (Negative) 12/06/24 12:02 Urine RBC 0-2 /hpf (0-2) 12/06/24 12:02 Urine WBC 0-5 /hpf (0-5) 12/06/24 12:02 Ur Squamous Epith Cells 0-5 /hpf (0-5) 12/06/24 12:02 Amorphous Sediment Not Reportable 12/06/24 12:02 Urine Bacteria None seen /hpf (NONE) 12/06/24 12:02 Hyaline Casts 2.05 /lpf 12/06/24 12:02 Vitals Last Vital Signs Temp 97.7 F 12/09/24 08:00 Pulse 69 12/09/24 08:00 Resp 14 12/09/24 08:00 BP 135/78 12/09/24 08:51 Pulse Ox 94 12/09/24 08:00 O2 Del Method Room Air 12/09/24 08:00 Discharge Plan Discharge Patient Disposition: Hospice - Home Condition: Stable Prescriptions: New metoprolol tartrate 25 mg Tablet 37.5 mg PO BID Qty: 60 0RF cyanocobalamin (vitamin B-12) [Vitamin B-12] 1,000 mcg tablet 1,000 mcg PO DAILY Qty: 30 0RF furosemide [Lasix] 20 mg tablet 10 mg PO DAILY PRN (Reason: edema) Qty: 10 0RF potassium chloride 8 mEq capsule, extended release 8 meq PO DAILY PRN (Reason: diuretic) Qty: 14 0RF Rx Instructions: Please take only on the day you take lasix. Otherwise do NOT take this daily. Continued amlodipine 10 mg tablet 10 mg PO DAILY Qty: 90 1RF magnesium L-lactate [Magtab] 84 mg tablet extended release 84 mg PO DAILY Qty: 90 1RF diclofenac sodium [Voltaren Arthritis Pain] 1 % gel 2 g topical QID PRN (Reason: joint pain) Qty: 100 2RF Rx Instructions: apply to single elbow, wrist or hand; for hand includes palm/fingers/back of hand allopurinol 300 mg tablet 300 mg PO DAILY Qty: 90 1RF aripiprazole [Abilify] 5 mg tablet 5 mg PO DAILY Qty: 90 1RF duloxetine [Cymbalta] 20 mg capsule,delayed release(DR/EC) 20 mg PO .in AM Qty: 90 1RF Rx Instructions: for feet hydralazine 25 mg tablet 25 mg PO TID Qty: 270 1RF losartan 100 mg tablet 100 mg PO DAILY Qty: 90 1RF mupirocin 2 % ointment 1 applic topical BID Qty: 15 0RF Discontinued metoprolol tartrate 25 mg tablet 25 mg PO BID Qty: 180 1RF trazodone 50 mg tablet 50 mg PO .at bedtime for sleep Qty: 30 2RF Discharge Orders: Discharge Order (Routine); Ordered 12/09/24 Ordered By: Mira Lorenz Referrals: Cindy Kaye, [facility] [Primary Care Provider] - 7-10 days (We have notified your physician's clinic of the need for a follow-up appointment to be scheduled. If you have not heard from them within the next 2 business days, please call them directly. ) Discharge Diet: Cardiac Discharge Activity: Resume usual activity and As per PT/OT instructions Patient Instructions: Metoprolol (By mouth), A-fib (Atrial Fibrillation) (GEN), Hospice Care (GEN) Discharge Attestations Time Spent in Discharge Care*: greater than 30 min Quality Metrics Clinical Quality Measures [ No reported AMI, CVA or VTE this stay] Coding Level of Care Code Acute Code for Chg Fwd Diagnoses Essential hypertension I10 PVC (premature ventricular contraction) I49.3 Mixed hyperlipidemia E78.2 Controlled gout M10.9 Moderate late onset Alzheimer's dementia with other behavioral disturbance G30.1; F02.B18 Alzheimer's disease onset: late onset Dementia behavioral or psychological symptom: with other behavioral disturbance Dementia severity: moderate Weakness R53.1 Frequent falls R29.6
--- NOTE | 2024-12-09 10:26 | PC.SLP ---
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
== END 2024-12-09 15:27 | disposition hospice, home (50) ==
LOC: ER 15:36 → ER IP 16:46 → MEDSURG 18:36
PROVIDERS: Internal Medicine; Admitting Provider Internal Medicine; Emergency Provider Emergency Medicine; PCP Nurse Practitioner; Visit Provider Internal Medicine
DX: R53.1 Weakness (principal); R29.6 Repeated falls; G30.1 Alzheimer's disease with late onset; F02.B18 Dementia in other diseases classified elsewhere, moderate, with other behavioral disturbance; M10.9 Gout, unspecified; E78.2 Mixed hyperlipidemia; I49.3 Ventricular premature depolarization; R00.0 Tachycardia, unspecified; Z66 Do not resuscitate; I12.9 Hypertensive chronic kidney disease with stage 1 through stage 4 chronic kidney disease, or unspecified chronic kidney disease; N18.9 Chronic kidney disease, unspecified; E86.0 Dehydration
CPT/HCPCS: 36415; 36416; 51702; 70450; 70544; 70547; 70551; 71045; 72125; 73502; 80048; 80053; 80069; 81001; 82607; 82962; 83735; 83880; 84145; 84443; 84484; 85025; 92507; 92523; 92610; 93005; 93306; 96361; 96372; 96374; 96375; 97161; 97167; 97530; 97535; 99285; G0378; J1644; J1940; J2060; J3411; J3420; J3490; J7040; J7042